=== PATIENT | male | born 1970 | race African-American/Black ===

== ENCOUNTER 2016-05-08 01:40 | Emergency (ER) | payer OTHER ==
[~2016-05-08] VITALS: Ht 165.1 cm; Wt 94.4 kg
[~2016-05-08 01:40] MED LIST: ALBU18HF INHALATION; PRED20TA PO
[2016-05-08 01:44] VITALS: Ht 165.1 cm; Wt 94.4 kg
[2016-05-08] MEDS ORDERED: IPRATROPIUM (NEB) 0.5 MG/2.5 ML AMP NEB STA (03:53)
[2016-05-08] MEDS ORDERED: ALBUTEROL 0.5% (NEB) 2.5 MG/0.5 ML AMP NEB STA (03:53)
--- NOTE | 2016-05-08 04:26 | ERD ---
ER Documentation Chief Complaint Date/Time DATE: 05/08/16 TIME: 04:23 Chief Complaint asthma flare up started 1 hr MOLDER VACUUM after doing activity. denies pain. HPI 45-year-old male presents to emergency department for complaints of wheezing and cough started tonight after doing an activity helping a friend move today. Patient has history of asthma. Patient has history of exercise-induced asthma. Patient has been having dry cough, does not cough up any phlegm or blood. Patient has episodes of wheezing. Patient ran out of his inhaler. Patient denies any fever or chills. ROS All systems reviewed and are negative except as per history of present illness. Medications Home Meds Active Scripts Albuterol Sulfate* (Proair HFA*) 8.5 Gm Hfa.aer.ad, 2 PUFF INH Q4H Y for WHEEZING AND SOB, #1 INHALER Prov:KERWIN GARCIA NP 05/08/16 Prednisone* (Prednisone*) 20 Mg Tab, 40 MG PO DAILY for 4 Days, TAB Prov:KAREN NICHOLSON PA-C 03/11/16 Albuterol Sulfate* (Ventolin HFA*) 18 Gm Hfa.aer.ad, 2 PUFF INHALATION Q4H, #1 INHALER Prov:KAREN NICHOLSON PA-C 03/11/16 Prednisone* (Prednisone*) 20 Mg Tab, 40 MG PO DAILY, #4 TAB Prov:JOEY HARRISON DO 02/03/16 Albuterol Sulfate* (Ventolin HFA*) 18 Gm Hfa.aer.ad, 2 PUFF INHALATION Q4H, #1 INHALER Prov:JOEY HARRISON DO 02/03/16 Allergies Allergies: Coded Allergies: Penicillins (Verified Allergy, Unknown, 02/03/16) PMhx/Soc History of Surgery: Yes (ankle surgery) Anesthesia Reaction: No Hx Neurological Disorder: No Hx Respiratory Disorders: No Hx Cardiac Disorders: No Hx Psychiatric Problems: No Hx Miscellaneous Medical Probl: Yes (ASTHMA) Hx Alcohol Use: No Hx Substance Use: No Hx Tobacco Use: No Smoking Status: Never smoker FmHx Family History: No coronary disease, No diabetes, No other Physical Exam Vitals Vital Signs Date Time Temp Pulse Resp B/P Pulse Ox O2 Delivery O2 Flow Rate FiO2 05/08/16 04:02 73 20 97 21 05/08/16 01:44 96.1 94 24 125/70 98 Physical Exam GENERAL: The patient is well developed and appropriate for usual state of health, in no apparent distress. CHEST: Diffuse wheezing bilaterally. There are no rales, crackles or rhonchi. HEART: Regular rate and rhythm. No murmurs, clicks, rubs or gallops. No S3 or S4. ABDOMEN: Soft, nontender and nondistended. Good bowel sounds. No rebound or guarding. No gross peritonitis. No gross organomegaly or masses. No Pérez sign or McBurney point tenderness. BACK: No midline or flank tenderness. EXTREMITIES: Equal pulses bilaterally. There is no peripheral clubbing, cyanosis or edema. No focal swelling or erythema. Full range of motion. Grossly neurovascularly intact. NEURO: Alert and oriented. Cranial nerves 2-12 intact. Motor strength in all 4 extremities with 5/5 strength. Sensation grossly intact. Normal speech and gait. SKIN: There is no apparent rash or petechia. The skin is warm and dry. HEMATOLOGIC AND LYMPHATIC: There is no evidence of excessive bruising or lymphedema. No gross cervical, axillary, or inguinal lymphadenopathy. Results 24 hrs Current Medications Medications (Trade) Dose Ordered Sig/Trevon Route PRN Reason Start Time Stop Time Status Last Admin Dose Admin Albuterol (Proventil 0.5% (Neb)) 5 mg ONCE STAT NEB 05/08/16 03:53 05/08/16 03:55 DC 05/08/16 04:02 Ipratropium [place] (Atrovent 0.02% (Neb)) 0.5 mg ONCE STAT NEB 05/08/16 03:53 05/08/16 03:55 DC 05/08/16 04:01 Breathing treatment of albuterol and Atrovent was given here in emergency department, after treatment, patient's lungs sounds are clear and patient's oxygenation is better. Patient verbalized feeling much better. Procedures/MDM Medical Decision Making: Patient symptoms are most likely consistent with acute asthma exacerbation most likely exercise-induced. There is low suspicion for Pneumonia at this time since patients lungs sounds are clear, patient O2 saturation is normal and patient doesnt show any respiratory distress. Radiology exam is not indicated at this. There is low suspicion for other cardiopulmonary emergencies at this time such as CHF, Pulmonary Embolism, Pneumothorax, Aortic Aneurysm or any other cardiopulmonary emergencies at this time. There is low suspicion for sepsis. Patient appears well and is hemodynamically stable. Patient does not have any fever. Disposition: Home. Condition: Stable Prescriptions albuterol. Instructions: Patient is advised to take medications as prescribed. Patient is advised to rest. Patient advised to increase fluid intake, do humidifier at home and if possible, do salt water gargles. Patient is advised that if symptoms are worse, shortness of breath, uncontrolled fever, stridor, vomiting, worst signs and symptoms to return to emergency department immediately. Otherwise, patient is advised to follow up with primary doctor in 5-7 days. Departure Diagnosis: Primary Impression: Asthma with acute exacerbation Asthma severity: unspecified severity Qualified Code: J45.901 - Asthma with acute exacerbation, unspecified asthma severity Condition: Stable Patient Instructions: Asthma, Acute (Adult) Additional Instructions: Patient is advised to take medications as prescribed. Patient is advised to rest. Patient advised to increase fluid intake, do humidifier at home and if possible, do salt water gargles. Patient is advised that if symptoms are worse, shortness of breath, uncontrolled fever, stridor, vomiting, worst signs and symptoms to return to emergency department immediately. Otherwise, patient is advised to follow up with primary doctor in 5-7 days. KERWIN GARCIA NP May 08, 2016 04:26
[2016-05-08] MEDS ORDERED: ALBU8.5H3 INH (04:27)
== END 2016-05-08 05:54 | disposition home or self-care (01) ==
LOC: FTE 01:40
DX: J45.901 Unspecified asthma with (acute) exacerbation (principal)
CPT/HCPCS: 94664; Z7502; Z7610

== ENCOUNTER 2016-05-17 01:59 | Inpatient (IN) | payer OTHER ==
[~2016-05-17] VITALS: Ht 167.6 cm; Wt 97.7 kg
[~2016-05-17 01:59] MED LIST changes: +ALBU8.5H3 INH
[2016-05-17] MEDS ORDERED: ONDANSETRON 4 MG INJ IV STA (03:56)
[2016-05-17] MEDS ORDERED: DICLOFENAC SODIUM 37.5 MG/ML VIAL IV STA (03:56)
[2016-05-17] MEDS ORDERED: SOD CHLORIDE 0.9% 1,000 ML IV STA (03:56)
[2016-05-17] MEDS ORDERED: morphine 2 MG INJ IV STA (03:56)
--- NOTE | 2016-05-17 04:23 | RADRPT ---
PROCEDURE: CT of the abdomen and pelvis without contrast CLINICAL INDICATION: Flank pain. TECHNIQUE: Spiral CT images through the abdomen and pelvis without the use of contrast. The study is tailored for evaluation of renal and ureteral calculi and is otherwise somewhat limited for eval uation of the abdomen and pelvis. The administered radiation dose is CTDI 19.26, DLP 1270.89. One o r more of the following dose reduction techniques were used: automated exposure control, adjustment of the mA and/or kV according to patient size, or use of iterative reconstruction technique. COMPARISON: None FINDINGS: Slight dependent atelectasis of the lung bases is seen. No pleural effusion is seen. The spleen, adrenals, and pancreas are unremarkable in appearance. There is a 9 mm probable cyst in the liver dome. No stones are seen in the kidneys, ureters, or bladder. No hydronephrosis or oanh nephric stranding. The gallbladder is distended with a suggestion of mild wall thickening and stran ding of the adjacent pericholecystic fat. No biliary or pancreatic ductal dilatation is seen. The fat stranding does extend to the adjacent hepatic flexure at the epicenter of the process appears to be about the gallbladder. The appendix is normal in appearance. Fat-containing umbilical hernia i s seen. The study is limited by lack of contrast but no gross bowel obstruction, free air, or absces s is seen. No adenopathy or ascites is seen. The bladder is underdistended. The prostate is grossl y unremarkable.. IMPRESSION: Probable acute cholecystitis. HIDA scan may be helpful for confirmation. No radiopaque stones. No biliary ductal dilatation. RPTAT: [facility] Physician Tierney Date Time Electronically viewed and signed by Physician Tierney on 05/17/2016 04:23 LE/
[2016-05-17 04:37] LABS: ADD UMIC YES; URINE BILIRUBIN (Dip) NEGATIVE (NEGATIVE); URINE BLOOD (Dip) 1+ (NEGATIVE); URINE COLOR LT. YELLOW (YELLOW); URINE GLUCOSE (Dip) NEGATIVE (NEGATIVE); URINE KETONES (Dip) TRACE (NEGATIVE); URINE LEUKOCYTE ESTERASE (Dip) NEGATIVE (NEGATIVE); URINE NITRITE (Dip) NEGATIVE (NEGATIVE); URINE TOTAL PROTEIN (Dip) NEGATIVE (NEGATIVE); URINE UROBILINOGEN (Dip) 1.0 E.U./dL (0.1-1.0)
[2016-05-17 04:45] LABS: SQUAMOUS EPITHELIAL CELL,UR OCCASIONAL; URINE RBCS 0-2 /HPF (0)
[2016-05-17 05:16] LABS: ALBUMIN 3.7 g/dl (3.3-4.9)
[2016-05-17 05:17] LABS: POTASSIUM 4.5 mmol/L (3.5-5.1)
[2016-05-17 05:19] LABS: ALBUMIN/GLOBULIN RATIO 1.05; BILIRUBIN,INDIRECT 0.3 mg/dl (0-1.1); BILIRUBIN,TOTAL 0.3 mg/dl (0.2-1.3); CREATININE 1.32 mg/dl (0.61-1.24); TOTAL PROTEIN 7.2 g/dl (6.1-8.1)
[2016-05-17 06:01] LABS: BASOPHILS % 0.2 % (0.0-2.0); EOSINOPHILS # 0.3 10^3/ul (0.0-0.5); EOSINOPHILS % 1.9 % (0.0-7.0); HEMATOCRIT 37.8 % (42.0-52.0); HEMOGLOBIN 12.3 g/dl (14.0-18.0); LYMPHOCYTES # 1.1 10^3/ul (0.8-2.9); LYMPHOCYTES % 6.8 % (15.0-51.0); MEAN CORPUSCULAR HEMOGLOBIN 27.3 pg (29.0-33.0); MEAN CORPUSCULAR HGB CONC 32.6 g/dl (32.0-37.0); MEAN CORPUSCULAR VOLUME 83.8 fl (82.0-101.0); MEAN PLATELET VOLUME 8.7 fl (7.4-10.4); MONOCYTE # 1.4 10^3/ul (0.3-0.9); MONOCYTES % 8.8 % (0.0-11.0); NEUTROPHILS % 82.3 % (39.0-77.0); PLATELET COUNT 409 10^3/UL (140-440); RED BLOOD COUNT 4.51 10^6/ul (4.70-6.10); RED CELL DISTRIBUTION WIDTH 14.6 % (11.5-14.5); UNCORRECTED WBC 15.8 10^3/ul (4.8-10.8); WHITE BLOOD COUNT 15.8 10^3/ul (4.8-10.8)
[2016-05-17 06:02] LABS: CONDITION 1; LH ANALYZER COMMENTS 1
--- NOTE | 2016-05-17 06:04 | RADRPT ---
PROCEDURE: US Abdomen. CLINICAL INDICATION: ruq pain, kenia on ct TECHNIQUE: Brown scale and color Doppler imaging of the right upper quadrant COMPARISON: CT from earlier FINDINGS: The aorta and inferior vena cava were not well seen due to bowel gas. The liver is homogeneous in e chotexture and no focal liver lesions are seen. Multiple stones and perhaps some sludge is present i n the gallbladder. The gallbladder is suboptimally seen but there is mild gallbladder wall thickeni ng measuring up to 5 mm in diameter by my measurement. No intra or extrahepatic biliary dilatation i s seen. The common bile duct measures 4.5 mm in maximal dimension. The right kidney measures 9.3 cm . No hydronephrosis or renal calculi are seen. The pancreas completely obscured by bowel gas.. No ascites is seen. IMPRESSION: Limited study. Gallstones with perhaps some gallbladder wall thickening. HIDA scan may be helpful to evaluate for acute cholecystitis. No biliary ductal dilatation. RPTAT: [facility] Physician Tierney Date Time Electronically viewed and signed by Helen Robles Physician on 05/17/2016 06:04 ALAN/
[2016-05-17] MEDS ORDERED: SOD CHLORIDE 0.9% 1,000 ML IV ONE ×3 (06:30→07:30)
[2016-05-17] MEDS ORDERED: CEFTRIAXONE 1 GM/50 ML (PMX) 50 ML IVPB STA (07:16)
[2016-05-17] MEDS ORDERED: metroNIDAZOLE 500 MG/NS (PMX) 100 ML IVPB ONE (07:30)
--- NOTE | 2016-05-17 07:35 | ERA ---
ER Documentation Chief Complaint Date/Time DATE: 05/17/16 TIME: 07:29 Chief Complaint both flank pain x 1 day HPI 45 year-old male with right sided and upper right abdominal pain going on for 1 day. States that it is actually bilateral kidney pain. Denies dysuria, has had chills and fever. Patient is not aware of any gallstones that he might have. Palpation makes the pain worse, nothing makes it better. He has tried Tylenol at home with no relief. ROS All systems reviewed and are negative except as per history of present illness. Medications Home Meds Discontinued Scripts Albuterol Sulfate* (Proair HFA*) 8.5 Gm Hfa.aer.ad, 2 PUFF INH Q4H Y for WHEEZING AND SOB, #1 INHALER Prov:KERWIN GARCIA NP 05/08/16 Prednisone* (Prednisone*) 20 Mg Tab, 40 MG PO DAILY for 4 Days, TAB Prov:KAREN NICHOLSON PA-C 03/11/16 Albuterol Sulfate* (Ventolin HFA*) 18 Gm Hfa.aer.ad, 2 PUFF INHALATION Q4H, #1 INHALER Prov:KAREN NICHOLSON PA-C 03/11/16 Prednisone* (Prednisone*) 20 Mg Tab, 40 MG PO DAILY, #4 TAB Prov:JOEY HARRISON DO 02/03/16 Albuterol Sulfate* (Ventolin HFA*) 18 Gm Hfa.aer.ad, 2 PUFF INHALATION Q4H, #1 INHALER Prov:JOEY HARRISON DO 02/03/16 Allergies Allergies: Coded Allergies: Penicillins (Verified Allergy, Unknown, 02/03/16) PMhx/Soc Medical and Surgical Hx: pt denies Medical Hx History of Surgery: Yes (L ankle fx repair) Anesthesia Reaction: No Hx Neurological Disorder: No Hx Respiratory Disorders: No Hx Cardiac Disorders: No Hx Psychiatric Problems: No Hx Miscellaneous Medical Probl: Yes (ASTHMA) Hx Alcohol Use: No Hx Substance Use: No Hx Tobacco Use: No Smoking Status: Never smoker Physical Exam Vitals Vital Signs Date Time Temp Pulse Resp B/P Pulse Ox O2 Delivery O2 Flow Rate FiO2 05/17/16 05:50 85 16 127/82 98 Room Air 05/17/16 02:04 97.6 94 20 122/70 98 Physical Exam Const: [] Mild distress, appears uncomfortable Head: Atraumatic Eyes: Normal Conjunctiva ENT: Normal External Ears, Nose and Mouth. Neck: Full range of motion..~ No meningismus. Resp: Clear to auscultation bilaterally Cardio: Regular tachycardia, no murmurs Abd: Soft, mild to moderate right upper quadrant tenderness without guarding or rebound, non distended. Normal bowel sounds Skin: No petechiae or rashes Back: No midline or flank tenderness Ext: No cyanosis, or edema Neur: Awake and alert and oriented 3, no focal deficits Psych: Normal Mood and Affect Result Diagram: 05/17/1644905/17/16 0450 Results 24 hrs Laboratory Tests Test 05/17/16 04:08 05/17/16 04:50 Urine Bilirubin NEGATIVE Urine Clarity CLEAR Urine Color LT. YELLOW Urine Glucose NEGATIVE% Urine Hemoglobin 1+ Urine Ketones TRACE Urine Leukocyte Esterase NEGATIVE Urine Microscopic RBC 0-2/HPF Urine Microscopic WBC 0-2/HPF Urine Nitrite NEGATIVE Urine Specific [place] >=1.030 Urine Squamous Epithelial Cells OCCASIONAL Urine Total Protein NEGATIVE Urine Urobilinogen 1.0 E.U./dL Urine pH 5.5 Alanine Aminotransferase (ALT/SGPT) 45IU/L Albumin 3.7g/dl Albumin/Globulin Ratio 1.05 Alkaline Phosphatase 95IU/L Anion Gap 18 Aspartate Amino Transf (AST/SGOT) 40IU/L Basophils # 0.010^3/ul Basophils % 0.2% Blood Morphology Comment Blood Urea Nitrogen 12mg/dl Calcium Level 9.0mg/dl Carbon Dioxide Level 27mmol/L Chloride Level 104mmol/L Creatinine 1.32mg/dl Direct Bilirubin 0.00mg/dl Eosinophils # 0.310^3/ul Eosinophils % 1.9% Globulin 3.50g/dl Glucose Level 114mg/dl Hematocrit 37.8% Hemoglobin 12.3g/dl Indirect Bilirubin 0.3mg/dl Lipase 64U/L Lymphocytes # 1.110^3/ul Lymphocytes % 6.8% Mean Corpuscular Hemoglobin 27.3pg Mean Corpuscular Hemoglobin Concent 32.6g/dl Mean Corpuscular Volume 83.8fl Mean Platelet Volume 8.7fl Monocytes # 1.410^3/ul Monocytes % 8.8% Neutrophils # 13.010^3/ul Neutrophils % 82.3% Nucleated Red Blood Cells # 0.010^3/ul Nucleated Red Blood Cells % 0.0/100WBC Platelet Count 19032^3/UL Potassium Level 4.5mmol/L Red Blood Count 4.5110^6/ul Red Cell Distribution Width 14.6% Sodium Level 144mmol/L Total Bilirubin 0.3mg/dl Total Protein 7.2g/dl White Blood Count 15.810^3/ul Current Medications Medications (Trade) Dose Ordered Sig/Trevon Route PRN Reason Start Time Stop Time Status Last Admin Dose Admin Sodium Chloride (NS) 1,000 ml @ 1,000 mls/hr Q1H STAT IV 05/17/16 03:56 05/17/16 04:55 DC 05/17/16 04:41 Morphine Sulfate (morphine) 2 mg ONCE STAT IV 05/17/16 03:56 05/17/16 03:58 DC 05/17/16 04:41 Ondansetron HCl (Zofran Inj) 4 mg ONCE STAT IV 05/17/16 03:56 05/17/16 03:58 DC 05/17/16 04:41 Diclofenac Sodium 37.5 mg 37.5 mg ONCE STAT IV 05/17/16 03:56 05/17/16 03:58 DC 05/17/16 04:41 Sodium Chloride 1,000 ml @ 1,000 mls/hr Q1H ONCE IV 05/17/16 06:30 05/17/16 07:29 05/17/16 06:57 Ceftriaxone Sodium 50 ml @ 100 mls/hr ONCE STAT IVPB 05/17/16 07:16 05/17/16 07:45 Metronidazole 100 ml @ 100 mls/hr ONCE ONCE IVPB 05/17/16 07:30 05/17/16 08:29 Sodium Chloride 1,000 ml @ 1,000 mls/hr Q1H ONCE IV 05/17/16 07:30 05/17/16 08:29 Sodium Chloride (NS) 1,000 ml @ 1,000 mls/hr Q1H ONCE IV 05/17/16 07:30 05/17/16 08:29 Procedures/MDM Likely acute cholecystitis with sepsis. Evidence of acute cholecystitis on CT with a nondiagnostic ultrasound. Patient does have an elevated white blood blood cell count, fever consistent with sepsis. Symptoms only been present for for short time. Patient was given 30 cc/kg of IV fluid as well as Rocephin and Flagyl. Pain was controlled with morphine and I will inject. Patient has no evidence of acute pancreatitis with a lipase of 64. Minimal elevation of his single transaminase. Spoke with Dr. Edwards who will see patient in consult and recommends a HIDA scan. Patient's pain is well controlled and vital signs of improved. CT abdomen pelvis interpretation: Likely acute cholecystitis without any signs of intestinal obstruction or free air, no bony abnormalities acutely. traffic monitor specialist interpretation: Sinus tachycardia improved with fluid administration Critical care time 34 minutes: This includes a treatment of sepsis with acute cholecystitis, careful fluid administration, chart review, multiple physical exams to reassess patient's symptoms, treatment of multiple organ dysfunction, antibiotic administration and selection, chart review, discussion with patient, admitting doctor and tool engineer. No billable procedures Departure Diagnosis: Primary Impression: Acute cholecystitis Additional Impressions: Sepsis Renal insufficiency Condition: Serious JOEY HARRISON DO May 17, 2016 07:35
--- NOTE | 2016-05-17 11:03 | HP ---
DATE OF ADMISSION: 05/17/2016 TYPE OF CONSULTATION: REQUESTING PHYSICIAN: nAdrea Carter MD REASON FOR CONSULTATION: Acute cholecystitis. HISTORY OF PRESENT ILLNESS: The patient is a 45-year-old aftercare -[place] gentleman who p resents to the emergency room with a 1-day history of right flank pain and right upper quadrant abdo manda pain. He has no familial history of gallbladder disease. Abdominal ultrasound showed multipl e gallstones with gallbladder wall thickening suggestive of acute cholecystitis. He has had no feve rs, chills or jaundice. A HIDA scan for this patient has been ordered. PAST MEDICAL HISTORY: No previous hospitalizations or illnesses other than the left ankle fracture with surgery. OUTPATIENT MEDICATIONS: None. ALLERGIES: NONE. REVIEW OF SYSTEMS: HEAD, EARS, EYES, NOSE AND THROAT: Unremarkable. PULMONARY: The patient has history of asthma. CARDIAC: No history of chest pain, CO or arrhythmia. ABDOMEN: As in the HPI. EXTREMITIES: Unremarkable. PHYSICAL EXAMINATION: GENERAL: The patient is a morbidly obese 45-year-old gentleman who is awake and alert, in no acute distress. HEAD, EARS, EYES, NOSE AND THROAT: Within normal limits. LUNGS: Clear. HEART: Regular rhythm. ABDOMEN: Tender in the right upper quadrant with slight guarding but no rebound. There is a small reducible umbilical hernia. EXTREMITIES: Unremarkable. LABORATORY DATA: The patient's hematocrit is 37.8 with a white count of 15,800, 82.3 polys. BUN, g lucose, electrolytes are unremarkable. LFTs are normal. IMAGING: As noted above. IMPRESSION: Clinically, this patient has acute cholecystitis and will be benefited by laparoscopic cholecystectomy. A HIDA scan is in progress. The patient will receive IV antibiotics today with hedrick rgery planned for tomorrow. I have discussed the procedure, outcomes, alternatives and risks in [facility] with the patient who has an excellent understanding of the nature of his situation and agrees to the proposed plan of therapy as outlined. Dictated By: KOSTAS PEDRAZA/HAYDEN Conf#: [id number] DID#: [id number] CC: ANDREA CARTER MD;*EndCC*
[2016-05-17] MEDS ORDERED: morphine 4 MG/ML VIAL IV STA (11:46)
--- NOTE | 2016-05-17 12:09 | CONS ---
Date/Time of Note Date/Time of Note DATE: 05/17/16 TIME: 12:04 Assessment/Plan Assessment/Plan Additional Assessment/Plan Abdominal pain * Likely secondary to cholecystitis * Cholecystectomy scheduled for tomorrow * Choledocholithiasis less likely secondary to normal bilirubin, LFTs, and lipase * ERCP if clinically indicated * Surgery following * Further recommendations depend on clinical course Consultation Date/Type/Reason Admit Date/Time Type of Consultation: Gastroenterology Reason for Consultation Abdominal pain Hx of Present Illness 45-year-old male who presents to ED with reports of 1-day history of right flank pain and right upper quadrant abdominal pain. Social History Smoking Status: Never smoker Exam/Review of Systems Vital Signs Vitals Vital Signs Date Time Temp Pulse Resp B/P Pulse Ox O2 Delivery O2 Flow Rate FiO2 05/17/16 07:50 98.5 88 16 130/80 98 Room Air Results Result Diagram: 05/17/16 0450 05/17/16 0450 Results 24 hrs Laboratory Tests Test 05/17/16 04:08 05/17/16 04:50 Urine Bilirubin NEGATIVE Urine Clarity CLEAR Urine Color LT. YELLOW Urine Glucose NEGATIVE Urine Hemoglobin 1+ H Urine Ketones TRACE Urine Leukocyte Esterase NEGATIVE Urine Microscopic RBC 0-2 Urine Microscopic WBC 0-2 Urine Nitrite NEGATIVE Urine Specific [place] >=1.030 H Urine Squamous Epithelial Cells OCCASIONAL Urine Total Protein NEGATIVE Urine Urobilinogen 1.0 E.U./dL Urine pH 5.5 Alanine Aminotransferase (ALT/SGPT) 45 Albumin 3.7 Albumin/Globulin Ratio 1.05 Alkaline Phosphatase 95 Anion Gap 18 H Aspartate Amino Transf (AST/SGOT) 40 Basophils # 0.0 Basophils % 0.2 Blood Morphology Comment Blood Urea Nitrogen 12 Calcium Level 9.0 Carbon Dioxide Level 27 Chloride Level 104 Creatinine 1.32 H Direct Bilirubin 0.00 Eosinophils # 0.3 Eosinophils % 1.9 Globulin 3.50 H Glucose Level 114 Hematocrit 37.8 L Hemoglobin 12.3 L Indirect Bilirubin 0.3 Lipase 64 Lymphocytes # 1.1 Lymphocytes % 6.8 L Mean Corpuscular Hemoglobin 27.3 L Mean Corpuscular Hemoglobin Concent 32.6 Mean Corpuscular Volume 83.8 Mean Platelet Volume 8.7 Monocytes # 1.4 H Monocytes % 8.8 Neutrophils # 13.0 H Neutrophils % 82.3 H Nucleated Red Blood Cells # 0.0 Nucleated Red Blood Cells % 0.0 Platelet Count 409 Potassium Level 4.5 Red Blood Count 4.51 L Red Cell Distribution Width 14.6 H Sodium Level 144 Total Bilirubin 0.3 Total Protein 7.2 White Blood Count 15.8 H NEIL HUTCHINSON MD May 17, 2016 12:09
[2016-05-17] MEDS: SOD CHLORIDE 0.9% 1,000 ML IV SCH ×2 (12:41→21:28)
[2016-05-17] MEDS ORDERED: DOCUSATE SODIUM 100 MG CAP PO PRN (13:00)
[2016-05-17] MEDS ORDERED: ACETAMINOPHEN 325 MG TAB PO PRN (13:00)
[2016-05-17] MEDS ORDERED: NACL 0.9% 3 ML SYG IV SCH (13:00)
[2016-05-17] MEDS ORDERED: BISACODYL 10 MG SUPP PR PRN (13:00)
[2016-05-17] MEDS ORDERED: MAGNESIUM HYDROXIDE 30ML CUP PO PRN (13:00)
--- NOTE | 2016-05-17 13:05 | RADRPT ---
AMENDMENT: 05/17/2016 4:21:04 PM Lauryn Damico MD Delayed images of the abdomen obtained at 5.5 hours post injection demonstrates a persistent nonvisu alization of the gallbladder. [facility] Radiology Report Patient Name: MARGARETH GONZALEZ Report Date: 17-May-2016 13:05.00 Accession No.: [id number] Patient Date: 1970 Report Status: S Referring Physician: CARLENE COOK Reason For Study: cholecystitis [place] [address] Radiology Main Line: [phone] DIAGNOSTIC IMAGING REPORT Patient: LISA ZULUAGA : 1970 Age: 45 Sex: M MR #: [id number] DOS: 05/17/16 0000 Ordering MD: JOEY HARRISON DO Location: E/R Room/Bed: PROCEDURE: HIDA scan CLINICAL INDICATION: 45 -year-old patient with abdominal pain. TECHNIQUE: Following the intravenous injection of 8.6 mCi of Tc-99m mebrofenin, multiple images of the abdomen were obtained up to 90 minutes post injection. COMPARISON: No prior studies. FINDINGS: The liver is promptly visualized, demonstrates homogeneous distribution of radionuclide. There is visualization of the common bile duct and gastrointestinal activity within normal time. The gallbladder is not visualized up to 90 minutes post injection. IMPRESSION: 1. Nonvisualization of the gallbladder up to 90 minutes post injection. 2. No evidence of a common bile duct obstruction. RPTAT: HH .Lauryn Damico MD, MD Date Time Electronically viewed and signed by .Lauryn Damico MD, MD on 05/17/2016 13:05 .L/ CC: JOEY HARRISON DO .Lauryn Damico MD, MD Date Time Electronically viewed and signed by .Lauryn Damico MD, MD on 05/17/2016 16:20 .L/
--- NOTE | 2016-05-17 13:23 | RADRPT ---
PROCEDURE: Chest x-ray CLINICAL INDICATION: pre op. TECHNIQUE: One-view frontal. COMPARISON: 02/03/2016 FINDINGS: The cardiac silhouette is normal. No infiltrates are noted. No hilar abnormalities are identified. No pneumothorax or pleural effusions are visualized. IMPRESSION: 1. No active cardiopulmonary changes. RPTAT: HH .Tu Schmitz MD, MD Date Time Electronically viewed and signed by .Tu Schmitz MD, MD on 05/17/2016 13:22 .G/
[2016-05-17] MEDS: LEVOFLOXACIN 750MG/D5W (PMX) 150 ML IVPB SCH (14:10)
[2016-05-17 15:00] VITALS: TEMP 98.4
[2016-05-17 15:28] LABS: INR 1.04; PROTIME 13.6 Sec (12.2-14.2); PT RATIO 1.1
[2016-05-17 15:29] LABS: PARTIAL THROMBOPLASTIN TIME 31.3 Sec (25.0-35.0)
[2016-05-17] MEDS: morphine 2 MG INJ IV PRN ×2 (15:35→20:11)
--- NOTE | 2016-05-17 16:08 | HP ---
DATE OF ADMISSION: 05/17/2016 PRIMARY CARE PHYSICIAN: KIKA CLAYTON MD. CONSULTANTS ON THIS ADMISSION: 1. KOSTAS BENNETT MD, general surgery. 2. NEIL EDWARDS MD, gastroenterology. CHIEF COMPLAINT: Abdominal pain. HISTORY OF THE PRESENT ILLNESS: This is a 45-year-old male with history of asthma who presented to [facility] emergency department with abdominal pain over the past 48 hours. He reports that it is a right f lank, right upper quadrant abdominal pain with episodes of nausea and vomiting over the past 48 hour s. He denies any fevers, chills, but does report worsening of the pain so far. In the emergency de partment, he had a gallbladder ultrasound that showed multiple gallstones with gallbladder wall thic kening suggestive of acute cholecystitis. He also had a CAT scan of the abdomen and pelvis that did show probable acute cholecystitis again. No radial opaque stones and no biliary ductal dilatation. HIDA scan is in process currently. The patient is n.p.o. He has been started on Levaquin and Flag yl given his PENICILLIN ALLERGY. Again, he has been evaluated by Dr. Bennett from General Surgery, w ho is recommending cholecystectomy pending HIDA scan. ALLERGIES: PENICILLIN. PAST MEDICAL HISTORY: Asthma. The last time the patient used his inhaler was 48 hours ago. PAST SURGICAL HISTORY: None. OUTPATIENT MEDICATIONS: Just albuterol inhaler as needed. SOCIAL HISTORY: The patient denies any alcohol or tobacco use. REVIEW OF SYSTEMS: As per HPI. PHYSICAL EXAMINATION: VITAL SIGNS: Temperature is 98.4, heart rate of 87, sinus rhythm, respiratory rate 16, blood pressu re 124/75. The patient is satting 100% on room air. GENERAL: He is alert and oriented x4. He is in mild distress, holding to his right side. HEENT: Pupils are equally round and reactive to light. Extraocular muscles are intact. Anicteric sclerae. NECK: No JVD, no thyromegaly noted. HEART: Regular rate and rhythm. No murmur, rubs, or gallops. LUNGS: Clear to auscultation bilaterally. ABDOMEN: Soft, nondistended. He does have tenderness to palpation in right upper quadrant, right f lank pain. Bowel sounds are present, diminished. EXTREMITIES: No edema, clubbing or cyanosis. NEUROLOGIC: Grossly intact. LABORATORY DATA: White blood cell count is 15.8 with 82% neutrophils, hemoglobin 12.3, hematocrit 3 7.8, platelet count of 409. Chemistry with a sodium of 144, potassium 4.5, chloride 104, bicarbonat e 27, BUN 12, creatinine 1.32, glucose of 114, total bilirubin 0.3, AST 40, ALT 45, alkaline phospha tase 95, albumin of 2.7, total protein of 7.2, lipase of 64. Urinalysis is negative, mostly. PT, PTT, INR are pending at this point. ELECTROCARDIOGRAM: A 12-lead EKG was also ordered as part of his preop evaluation. RADIOLOGICAL DATA: 1. Chest x-ray shows no active cardiopulmonary disease. 2. Gallbladder ultrasound showed gallstone with perhaps some gallbladder wall thickening, no biliar y duct dilatation. 3. CAT scan of the abdomen and pelvis showing probable acute cholecystitis and recommended for HIDA scan. HIDA scan is in process currently. ASSESSMENT AND PLAN: This is a 45-year-old male with: 1. Right upper quadrant, right flank pain with findings so far for acute cholecystitis. The patien t is on Levaquin and Flagyl. He has been seen by Dr. Bennett who is planning for cholecystectomy pen ding HIDA scan. Also, has been seen by Dr. Edwards who agrees with cholecystectomy pending, HIDA sca n at this point. Patient is n.p.o. 2. Asthma has been stable from the respiratory standpoint. Chest x-ray stable, will have a nebuliz er ordered as needed. 3. Disposition: HIDA scan pending. Depending on results, cholecystectomy to be planned by Dr. Eladio mar from General Surgery. 4. Prophylaxis. Sequential compression devices to lower extremities for deep venous thrombosis pro phylaxis and Protonix for gastrointestinal prophylaxis. Dictated By: MISAEL COBIAN/HAYDEN Conf#: [id number] DID#: [id number]
[2016-05-17 21:10] VITALS: BP 131/78; PULSE 106; RESP 18
[2016-05-17 21:35] VITALS: Ht 167.6 cm; Wt 97.7 kg
[2016-05-17] MEDS: metroNIDAZOLE 500 MG/NS (PMX) 100 ML IVPB SCH (21:44)
[2016-05-18] VITALS (13 sets, daily range): BP systolic 100–134; BP diastolic 51–81; PULSE 85–100; RESP 16–20
[2016-05-18] MEDS: morphine 2 MG INJ IV PRN ×4 (00:10→19:46)
[2016-05-18] MEDS: PANTOPRAZOLE 40 MG INJ IV SCH (05:06)
[2016-05-18] MEDS: metroNIDAZOLE 500 MG/NS (PMX) 100 ML IVPB SCH ×3 (05:06→22:58)
[2016-05-18 05:40] LABS: BASOPHIL # 0.1 10^3/ul (0.0-0.1); BASOPHILS % 0.3 % (0.0-2.0); EOSINOPHILS # 0.3 10^3/ul (0.0-0.5); EOSINOPHILS % 1.6 % (0.0-7.0); HEMATOCRIT 35.2 % (42.0-52.0); HEMOGLOBIN 11.6 g/dl (14.0-18.0); LYMPHOCYTES # 1.1 10^3/ul (0.8-2.9); LYMPHOCYTES % 5.6 % (15.0-51.0); MEAN CORPUSCULAR HEMOGLOBIN 27.8 pg (29.0-33.0); MEAN CORPUSCULAR HGB CONC 32.9 g/dl (32.0-37.0); MEAN CORPUSCULAR VOLUME 84.5 fl (82.0-101.0); MEAN PLATELET VOLUME 8.1 fl (7.4-10.4); MONOCYTE # 2.4 10^3/ul (0.3-0.9); MONOCYTES % 12.5 % (0.0-11.0); NEUTROPHIL # 15.4 10^3/ul (1.6-7.5); PLATELET COUNT 352 10^3/UL (140-440); RED BLOOD COUNT 4.17 10^6/ul (4.70-6.10); RED CELL DISTRIBUTION WIDTH 14.5 % (11.5-14.5); UNCORRECTED WBC 19.3 10^3/ul (4.8-10.8); WHITE BLOOD COUNT 19.3 10^3/ul (4.8-10.8)
[2016-05-18 05:47] LABS: CONDITION 1
[2016-05-18 06:18] LABS: ALBUMIN 3.1 g/dl (3.3-4.9)
[2016-05-18 06:19] LABS: POTASSIUM 4.5 mmol/L (3.5-5.1)
[2016-05-18 06:21] LABS: ALBUMIN/GLOBULIN RATIO 0.91; BILIRUBIN,INDIRECT 0.3 mg/dl (0-1.1); BILIRUBIN,TOTAL 0.3 mg/dl (0.2-1.3); CREATININE 1.13 mg/dl (0.61-1.24); PHOSPHORUS 2.6 mg/dl (2.5-4.9); TOTAL PROTEIN 6.5 g/dl (6.1-8.1)
[2016-05-18 06:22] LABS: CALCIUM 8.4 mg/dl (8.4-10.2)
[2016-05-18] MEDS ORDERED: CEFAZOLIN 1 GM INJ ONE (07:00)
[2016-05-18] MEDS ORDERED: ACETAMINOPHEN 1000 MG/100 ML IVPB ONE (07:00)
--- NOTE | 2016-05-18 09:09 | CONS ---
Date/Time of Note Date/Time of Note DATE: 05/18/16 TIME: 09:07 Assessment/Plan Assessment/Plan Additional Assessment/Plan Abdominal pain * Likely secondary to cholecystitis * Cholecystectomy scheduled for tomorrow * Choledocholithiasis less likely secondary to normal bilirubin, LFTs, and lipase * ERCP if clinically indicated * Surgery following Further recommendations depend on clinical course Patient seen in collaboration with Dr. Edwards Consultation Date/Type/Reason Admit Date/Time May 17, 2016 at 08:51 Initial Consult Date Type of Consultation: Gastroenterology 24 HR Interval Summary Free Text/Dictation Cholecystectomy at 1130 today Reports less abdominal pain Exam/Review of Systems Vital Signs Vitals Vital Signs Date Time Temp Pulse Resp B/P Pulse Ox O2 Delivery O2 Flow Rate FiO2 05/18/16 08:09 98.0 92 18 121/75 96 05/18/16 00:20 Room Air Intake and Output 05/17/16 05/17/16 05/18/16 15:00 23:00 07:00 Intake Total 100 ml 850 ml Output Total 700 ml Balance 100 ml 150 ml Exam Constitutional: alert, oriented, well developed Psych: nl mood/affect Head: normocephalic Eyes: EOMI, nl conjunctiva, nl lids, nl sclera ENMT: nl external ears & nose, nl lips & teeth, nl nasal mucosa & septum Respiratory: normal air movement Cardiovascular: regular rate and rhythm Gastrointestinal: soft, tender (LUQ) Musculoskeletal: nl extremities to inspection 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 Results Result Diagram: 05/18/16 04205/18/16 0420 Results 24 hrs Laboratory Tests Test 05/17/16 15:00 05/17/16 19:05 05/17/16 21:36 05/18/16 04:20 Activated Partial Thromboplast Time 31.3 INR International Normalized Ratio 1.04 Lactic Acid Level 1.3 1.5 1.4 Prothrombin Time 13.6 Prothrombin Time Ratio 1.1 Alanine Aminotransferase (ALT/SGPT) 33 Albumin 3.1 L Albumin/Globulin Ratio 0.91 Alkaline Phosphatase 82 Anion Gap 14 Aspartate Amino Transf (AST/SGOT) 26 Basophils # 0.1 Basophils % 0.3 Blood Morphology Comment Blood Urea Nitrogen 8 Calcium Level 8.4 Carbon Dioxide Level 26 Chloride Level 104 Creatinine 1.13 Direct Bilirubin 0.00 Eosinophils # 0.3 Eosinophils % 1.6 Globulin 3.40 H Glucose Level 89 Hematocrit 35.2 L Hemoglobin 11.6 L Indirect Bilirubin 0.3 Lymphocytes # 1.1 Lymphocytes % 5.6 L Magnesium Level 2.0 Mean Corpuscular Hemoglobin 27.8 L Mean Corpuscular Hemoglobin Concent 32.9 Mean Corpuscular Volume 84.5 Mean Platelet Volume 8.1 Monocytes # 2.4 H Monocytes % 12.5 H Neutrophils # 15.4 H Neutrophils % 80.0 H Nucleated Red Blood Cells # 0.0 Nucleated Red Blood Cells % 0.0 Phosphorus Level 2.6 Platelet Count 352 Potassium Level 4.5 Red Blood Count 4.17 L Red Cell Distribution Width 14.5 Sodium Level 139 Total Bilirubin 0.3 Total Protein 6.5 White Blood Count 19.3 #H Medications Medications Current Medications Levofloxacin/ Dextrose 150 ml @ 100 mls/hr Q24H IVPB Last administered on 05/17 14:10; Admin Dose 100 MLS/HR; Start 05/17/16 at 14:00 Metronidazole 100 ml @ 100 mls/hr Q8 IVPB Last administered on 05/18/16 05:06 ; Admin Dose 100 MLS/HR; Start 05/17/16 at 22:00 Sodium Chloride (NS) 1,000 ml @ 100 mls/hr Q10H IV Last administered on 21:28; Admin Dose 100 MLS/HR; Start 05/17/16 at 12:41 Ondansetron HCl (Zofran Inj) 4 mg Q6H PRN IV NAUSEA AND/OR VOMITING; Start at 13:00 Acetaminophen (Tylenol Tab) 650 mg Q6H PRN PO PAIN LEVEL 1-3 OR FEVER Last administered on 05/17/16 21:55; Admin Dose 650 MG; Start 05/17/16 at 13:00 Morphine Sulfate (morphine) 2 mg Q4H PRN IV SEVERE PAIN LEVEL 7-10 Last administered on 05/18/16 08:40; Admin Dose 2 MG; Start 05/17/16 at 13:00 Docusate Sodium (Colace) 100 mg Q12H PRN PO CONSTIPATION; Start 05/17/16 at 13: 00 Magnesium Hydroxide (Milk Of Mag) 30 ml DAILY PRN PO CONSTIPATION; Start at 13:00 Bisacodyl (Dulcolax Supp) 10 mg DAILY PRN [place] CONSTIPATION; Start 05/17/16 at 13 :00 Pantoprazole (Protonix Iv) 40 mg DAILY@06 IV Last administered on 05/18/16t 05: 06; Admin Dose 40 MG; Start 05/18/16 at 06:00 YESICA YI May 18, 2016 09:09
[2016-05-18] MEDS: SOD CHLORIDE 0.9% 1,000 ML IV SCH ×2 (09:45→15:35)
--- NOTE | 2016-05-18 10:49 | PN ---
Date/Time of Note Date/Time of Note DATE: 05/18/16 TIME: 10:37 Assessment/Plan VTE Prophylaxis VTE Prophylaxis Intervention: SCD's Lines/Catheters IV Catheter Type (from Nrs): Peripheral IV Urinary Cath still in place: No Assessment/Plan Assessment/Plan 45-year-old male with: 1. Acute cholecystitis with right upper quadrant, right flank pain. Cholecystectomy planned for today NPO, IVF and IV abx on board 2. Asthma: . Chest x-ray stable, nebulizer prn Prophylaxis. Sequential compression devices to lower extremities for deep venous thrombosis prophylaxis and Protonix for gastrointestinal prophylaxis. Disposition: Cholecystectomy today with Dr. Hoyt. Subjective 24 Hr Interval Summary Free Text/Dictation Patient doing Ok, remains stable WBC up and with pain but hemodynamically stable and afebrile Exam/Review of Systems Vital Signs Vitals Vital Signs Date Time Temp Pulse Resp B/P Pulse Ox O2 Delivery O2 Flow Rate FiO2 05/18/16 08:09 98.0 92 18 121/75 96 05/18/16 00:20 Room Air Intake and Output 05/17/16 05/17/16 05/18/16 15:00 23:00 07:00 Intake Total 100 ml 850 ml Output Total 700 ml Balance 100 ml 150 ml Exam Constitutional: alert, oriented, well developed Cardiovascular: nl pulses, regular rate and rhythm Gastrointestinal: non-tender, soft Musculoskeletal: nl extremities to inspection Extremities: normal pulses, other (no edema, clubbing or cyanosis ) 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, nl mental status, nl speech, nl strength Results Result Diagram: 05/18/1641905/18/16 042 Results 24 hrs Laboratory Tests Test 05/17/16 15:00 05/17/16 19:05 05/17/16 21:36 05/18/16 04:20 Activated Partial Thromboplast Time 31.3 INR International Normalized Ratio 1.04 Lactic Acid Level 1.3 1.5 1.4 Prothrombin Time 13.6 Prothrombin Time Ratio 1.1 Alanine Aminotransferase (ALT/SGPT) 33 Albumin 3.1 L Albumin/Globulin Ratio 0.91 Alkaline Phosphatase 82 Anion Gap 14 Aspartate Amino Transf (AST/SGOT) 26 Basophils # 0.1 Basophils % 0.3 Blood Morphology Comment Blood Urea Nitrogen 8 Calcium Level 8.4 Carbon Dioxide Level 26 Chloride Level 104 Creatinine 1.13 Direct Bilirubin 0.00 Eosinophils # 0.3 Eosinophils % 1.6 Globulin 3.40 H Glucose Level 89 Hematocrit 35.2 L Hemoglobin 11.6 L Indirect Bilirubin 0.3 Lymphocytes # 1.1 Lymphocytes % 5.6 L Magnesium Level 2.0 Mean Corpuscular Hemoglobin 27.8 L Mean Corpuscular Hemoglobin Concent 32.9 Mean Corpuscular Volume 84.5 Mean Platelet Volume 8.1 Monocytes # 2.4 H Monocytes % 12.5 H Neutrophils # 15.4 H Neutrophils % 80.0 H Nucleated Red Blood Cells # 0.0 Nucleated Red Blood Cells % 0.0 Phosphorus Level 2.6 Platelet Count 352 Potassium Level 4.5 Red Blood Count 4.17 L Red Cell Distribution Width 14.5 Sodium Level 139 Total Bilirubin 0.3 Total Protein 6.5 White Blood Count 19.3 #H Medications Medications Current Medications Levofloxacin/ Dextrose 150 ml @ 100 mls/hr Q24H IVPB Last administered on 05/17 14:10; Admin Dose 100 MLS/HR; Start 05/17/16 at 14:00 Metronidazole 100 ml @ 100 mls/hr Q8 IVPB Last administered on 05/18/16 05:06 ; Admin Dose 100 MLS/HR; Start 05/17/16 at 22:00 Sodium Chloride (NS) 1,000 ml @ 100 mls/hr Q10H IV Last administered on 09:45; Admin Dose 100 MLS/HR; Start 05/17/16 at 12:41 Ondansetron HCl (Zofran Inj) 4 mg Q6H PRN IV NAUSEA AND/OR VOMITING; Start at 13:00 Acetaminophen (Tylenol Tab) 650 mg Q6H PRN PO PAIN LEVEL 1-3 OR FEVER Last administered on 05/17/16 21:55; Admin Dose 650 MG; Start 05/17/16 at 13:00 Morphine Sulfate (morphine) 2 mg Q4H PRN IV SEVERE PAIN LEVEL 7-10 Last administered on 05/18/16 08:40; Admin Dose 2 MG; Start 05/17/16 at 13:00 Docusate Sodium (Colace) 100 mg Q12H PRN PO CONSTIPATION; Start 05/17/16 at 13: 00 Magnesium Hydroxide (Milk Of Mag) 30 ml DAILY PRN PO CONSTIPATION; Start at 13:00 Bisacodyl (Dulcolax Supp) 10 mg DAILY PRN [place] CONSTIPATION; Start 05/17/16 at 13 :00 Pantoprazole (Protonix Iv) 40 mg DAILY@06 IV Last administered on 05/18/16t 05: 06; Admin Dose 40 MG; Start 05/18/16 at 06:00 Procedures Procedures PROCEDURE: HIDA scan CLINICAL INDICATION: 45 -year-old patient with abdominal pain. TECHNIQUE: Following the intravenous injection of 8.6 mCi of Tc-99m mebrofenin, multiple images of the abdomen were obtained up to 90 minutes post injection. COMPARISON: No prior studies. FINDINGS: The liver is promptly visualized, demonstrates homogeneous distribution of radionuclide. There is visualization of the common bile duct and gastrointestinal activity within normal time. The gallbladder is not visualized up to 90 minutes post injection. IMPRESSION: 1. Nonvisualization of the gallbladder up to 90 minutes post injection. 2. No evidence of a common bile duct obstruction. MISAEL RIVER May 18, 2016 10:49
[2016-05-18] MEDS ORDERED: ALBUTEROL 0.5% (NEB) 2.5 MG/0.5 ML AMP HHN PRN (11:00)
[2016-05-18] MEDS ORDERED: BUPIVACAINE 0.25%/EPI (SDV) 30 ML INJ ONE (11:57)
[2016-05-18] MEDS ORDERED: PROPOFOL 20 ML ONE (12:32)
[2016-05-18] MEDS ORDERED: LIDOCAINE 100 MG SYRINGE ONE (12:32)
[2016-05-18] MEDS ORDERED: GLYCOPYRROLATE 1 MG INJ ONE (12:32)
[2016-05-18] MEDS ORDERED: NEOSTIGMINE 3 MG/3 ML SYRINGE ONE (12:32)
[2016-05-18] MEDS ORDERED: ROCURONIUM 50 MG INJ ONE (12:32)
[2016-05-18] MEDS ORDERED: ONDANSETRON 4 MG INJ ONE (12:33)
[2016-05-18] MEDS ORDERED: MIDAZOLAM 1 MG/ML 2 ML INJ ONE (12:33)
[2016-05-18] MEDS ORDERED: DEXAMETHASONE 4 MG/ML 1 ML INJ ONE (12:33)
[2016-05-18] MEDS ORDERED: MIDAZOLAM 1 MG/ML 2 ML INJ IV PRN (13:30)
[2016-05-18] MEDS ORDERED: FENTAnyl 50 MCG/ML VIAL IV PRN ×3 (13:30)
[2016-05-18] MEDS ORDERED: DIPHENHYDRAMINE 50 MG INJ IV PRN (13:30)
[2016-05-18] MEDS ORDERED: TRIMETHOBENZAMIDE 100 MG/ML VIAL IM PRN (13:30)
[2016-05-18] MEDS ORDERED: ONDANSETRON 4 MG INJ IV PRN ×2 (13:30→14:00)
[2016-05-18] MEDS ORDERED: HYDROmorphONE (0.2 MG/ML) 10ML SYG IV PRN ×3 (13:30)
[2016-05-18] MEDS ORDERED: LABETALOL HCL 20MG INJ IV PRN (13:30)
[2016-05-18] MEDS ORDERED: MEPERIDINE 25 MG INJ IV PRN (13:30)
[2016-05-18] MEDS ORDERED: hydrALAzine 20 MG INJ IV PRN (13:30)
[2016-05-18] MEDS ORDERED: EPHEDrine SULFATE 50 MG/5 ML SYG IV PRN (13:30)
[2016-05-18] MEDS ORDERED: morphine 2 MG INJ IV PRN (14:00)
[2016-05-18] MEDS ORDERED: OXYCODONE/ACETAMINOPHEN (5/325) TAB PO PRN (14:00)
--- NOTE | 2016-05-18 14:22 | OPR ---
DATE OF OPERATION: 05/18/2016 PREOPERATIVE DIAGNOSIS: Acute cholecystitis. POSTOPERATIVE DIAGNOSIS: Acute cholecystitis. PROCEDURE PERFORMED: 1. Laparoscopic cholecystectomy. 2. Placement of drain. SURGEON: Kostas Hoyt MD ANESTHESIA: General. ANESTHESIOLOGIST: Avery Mancia MD DESCRIPTION OF PROCEDURE: After satisfactory general anesthesia was achieved, the abdomen was prepp ed and draped in the usual fashion. The abdomen was insufflated with carbon dioxide through an umbi lical Veress needle to 15 mmHg pressure. The Veress needle was removed and the umbilical incision e xtended to 5 mm, through which a 5 mm trocar was placed. A 5 mm 0-degree lens was placed. Laparosc opy showed an acutely inflamed, edematous, indurated gallbladder. Under direct visualization, a 12 mm epigastric trocar was placed as well as two 5 mm right lateral abdominal trocars. The dome of th e gallbladder was grasped and retracted superiorly. Omental adhesions were peeled off the gallbladd er enabling the distal gallbladder to be grasped and retracted inferiorly. The hepatoduodenal ligam ent was carefully dissected. The cystic duct and artery were both identified and then triply hemocl ipped and divided between clips high at the junction of the gallbladder and cystic duct. Peritoneal attachments to the gallbladder were divided over clips. The gallbladder was then dissected from be low using electrocautery dissection. It was placed into an EndoCatch, removed via the epigastric ro [place]. Hemostasis of the liver bed was excellent. Because of the marked degree of inflammation and i nfection, a #19 round Umberto drain was placed, draining the gallbladder fossa and exited through the lateral most puncture site where it was secured to the skin with 2-0 silk. The gallbladder was cult ured. The abdomen was then desufflated and all trocars were removed. The fascia of the epigastrium was closed with 2 sutures of 0 Vicryl. The skin punctures were infiltrated with 30 mL of 0.25% Mar di with epinephrine and closed with manohar. Operative blood loss approximately 50 to 75 mL. Sp onge and needle counts reported as correct x2. The patient tolerated the procedure well and without incident or complication. Dictated By: KOSTAS PEDRAZA/HAYDEN Conf#: [id number] DID#: [id number] CC: KIKA CLAYTON MD;*[facility]*
[2016-05-18] MEDS: LEVOFLOXACIN 750MG/D5W (PMX) 150 ML IVPB SCH (16:08)
[2016-05-18] MEDS: OXYCODONE/ACETAMINOPHEN (5/325) TAB PO PRN (21:10)
[2016-05-19] MEDS: OXYCODONE/ACETAMINOPHEN (5/325) TAB PO PRN ×3 (01:55→14:22)
[2016-05-19] MEDS: SOD CHLORIDE 0.9% 1,000 ML IV SCH ×3 (04:17→23:38)
[2016-05-19] MEDS: metroNIDAZOLE 500 MG/NS (PMX) 100 ML IVPB SCH ×3 (05:51→21:41)
[2016-05-19] MEDS: PANTOPRAZOLE 40 MG INJ IV SCH (05:51)
[2016-05-19 05:56] LABS: BASOPHILS % 0.2 % (0.0-2.0); HEMOGLOBIN 10.9 g/dl (14.0-18.0); LYMPHOCYTES # 0.5 10^3/ul (0.8-2.9); LYMPHOCYTES % 2.7 % (15.0-51.0); MEAN CORPUSCULAR HEMOGLOBIN 27.6 pg (29.0-33.0); MEAN CORPUSCULAR HGB CONC 32.9 g/dl (32.0-37.0); MEAN CORPUSCULAR VOLUME 84.1 fl (82.0-101.0); MEAN PLATELET VOLUME 8.4 fl (7.4-10.4); MONOCYTE # 1.5 10^3/ul (0.3-0.9); MONOCYTES % 8.1 % (0.0-11.0); NEUTROPHIL # 16.3 10^3/ul (1.6-7.5); PLATELET COUNT 381 10^3/UL (140-440); RED BLOOD COUNT 3.92 10^6/ul (4.70-6.10); RED CELL DISTRIBUTION WIDTH 14.4 % (11.5-14.5); UNCORRECTED WBC 18.3 10^3/ul (4.8-10.8); WHITE BLOOD COUNT 18.3 10^3/ul (4.8-10.8)
[2016-05-19 06:20] LABS: CONDITION 1
[2016-05-19 06:38] LABS: MAGNESIUM 1.9 mg/dl (1.7-2.5); PHOSPHORUS 3.3 mg/dl (2.5-4.9)
[2016-05-19 06:51] LABS: POTASSIUM 4.6 mmol/L (3.5-5.1)
[2016-05-19 06:53] LABS: BILIRUBIN,INDIRECT 0.2 mg/dl (0-1.1); BILIRUBIN,TOTAL 0.2 mg/dl (0.2-1.3); CREATININE 1.14 mg/dl (0.61-1.24)
[2016-05-19 06:54] LABS: ALBUMIN/GLOBULIN RATIO 0.96; CALCIUM 8.5 mg/dl (8.4-10.2); TOTAL PROTEIN 6.1 g/dl (6.1-8.1)
[2016-05-19 07:54] VITALS: BP 112/79; RESP 18
--- NOTE | 2016-05-19 11:39 | PN ---
Date/Time of Note Date/Time of Note DATE: 05/19/16 TIME: 11:36 Assessment/Plan VTE Prophylaxis VTE Prophylaxis Intervention: ambulation, SCD's Lines/Catheters IV Catheter Type (from Nrs): Peripheral IV Urinary Cath still in place: No Assessment/Plan Assessment/Plan 45-year-old male with: 1. Acute cholecystitis s/p lap kenia with drain placement: POD #1. Case d/w Dr. Hoyt and we will keep patient in the hospital for monitoring of labs and post-op care. The plain is to d/c in AM if he continues to improve. I discussed the case with his mother over the phone. 2. Asthma: . Chest x-ray stable, nebulizer prn Prophylaxis. Sequential compression devices to lower extremities for deep venous thrombosis prophylaxis and Protonix for gastrointestinal prophylaxis. Disposition: D/C home in AM with nursing care for drain. Subjective 24 Hr Interval Summary Free Text/Dictation Feeling better today. Had two episodes of flatus, but no BM. Appetite is good. Exam/Review of Systems Vital Signs Vitals Vital Signs Date Time Temp Pulse Resp B/P Pulse Ox O2 Delivery O2 Flow Rate FiO2 05/19/16 07:54 98.3 85 18 112/79 96 05/19/16 00:31 2.0 05/18/16 18:00 Nasal Cannula Intake and Output 05/18/16 05/18/16 05/19/16 15:00 23:00 07:00 Intake Total 1950 ml 550 ml 1500 ml Output Total 125 ml 10 ml 975 ml Balance 1825 ml 540 ml 525 ml Exam Psych: no complaints Head: normocephalic Eyes: nl conjunctiva ENMT: nl external ears & nose Neck: supple Respiratory: clear to auscultation Cardiovascular: regular rate and rhythm Gastrointestinal: other (mild TTP over incision site where drain is.), soft Extremities: normal pulses Neurological: ARMHOLE SEWER 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 Results Result Diagram: 05/19/1642705/19/16427 Results 24 hrs Laboratory Tests Test 05/19/16 04:28 Alanine Aminotransferase (ALT/SGPT) 34 Albumin 3.0 L Albumin/Globulin Ratio 0.96 Alkaline Phosphatase 78 Anion Gap 16 Aspartate Amino Transf (AST/SGOT) 46 # Basophils # 0.0 Basophils % 0.2 Blood Morphology Comment Blood Urea Nitrogen 11 Calcium Level 8.5 Carbon Dioxide Level 22 Chloride Level 104 Creatinine 1.14 Direct Bilirubin 0.00 Eosinophils # 0.0 Eosinophils % 0.0 Globulin 3.10 Glucose Level 121 Hematocrit 33.0 L Hemoglobin 10.9 L Indirect Bilirubin 0.2 Lymphocytes # 0.5 L Lymphocytes % 2.7 L Magnesium Level 1.9 Mean Corpuscular Hemoglobin 27.6 L Mean Corpuscular Hemoglobin Concent 32.9 Mean Corpuscular Volume 84.1 Mean Platelet Volume 8.4 Monocytes # 1.5 H Monocytes % 8.1 Neutrophils # 16.3 H Neutrophils % 89.0 H Nucleated Red Blood Cells # 0.0 Nucleated Red Blood Cells % 0.0 Phosphorus Level 3.3 Platelet Count 381 Potassium Level 4.6 Red Blood Count 3.92 L Red Cell Distribution Width 14.4 Sodium Level 137 Total Bilirubin 0.2 Total Protein 6.1 White Blood Count 18.3 H Medications Medications Current Medications Levofloxacin/ Dextrose 150 ml @ 100 mls/hr Q24H IVPB Last administered on 05/18 16:08; Admin Dose 100 MLS/HR; Start 05/17/16 at 14:00 Metronidazole 100 ml @ 100 mls/hr Q8 IVPB Last administered on 05/19/16 05:51 ; Admin Dose 100 MLS/HR; Start 05/17/16 at 22:00 Sodium Chloride (NS) 1,000 ml @ 100 mls/hr Q10H IV Last administered on 04:17; Admin Dose 100 MLS/HR; Start 05/17/16 at 12:41 Ondansetron HCl (Zofran Inj) 4 mg Q6H PRN IV NAUSEA AND/OR VOMITING; Start at 13:00 Acetaminophen (Tylenol Tab) 650 mg Q6H PRN PO PAIN LEVEL 1-3 OR FEVER Last administered on 05/17/16 21:55; Admin Dose 650 MG; Start 05/17/16 at 13:00 Morphine Sulfate (morphine) 2 mg Q4H PRN IV SEVERE PAIN LEVEL 7-10 Last administered on 05/18/16 19:46; Admin Dose 2 MG; Start 05/17/16 at 13:00 Docusate Sodium (Colace) 100 mg Q12H PRN PO CONSTIPATION; Start 05/17/16 at 13: 00 Magnesium Hydroxide (Milk Of Mag) 30 ml DAILY PRN PO CONSTIPATION; Start at 13:00 Bisacodyl (Dulcolax Supp) 10 mg DAILY PRN [place] CONSTIPATION; Start 05/17/16 at 13 :00 Pantoprazole (Protonix Iv) 40 mg DAILY@06 IV Last administered on 05/19/16 05: 51; Admin Dose 40 MG; Start 05/18/16 at 06:00 Oxycodone/ Acetaminophen (Percocet (5/ 325)) 1 tab Q4H PRN PO MILD PAIN (1-3); Start 05/18/16 at 14:00 Oxycodone/ Acetaminophen (Percocet (5/ 325)) 2 tab Q4H PRN PO MODERATE PAIN (4- 6) Last administered on 05/19/16 08:13; Admin Dose 2 TAB; Start 05/18/16 at 14: 00 Morphine Sulfate (morphine) 2 mg ONCE PRN IV SEVERE PAIN LEVEL 7-10; Start 05/18 at 14:00 Ondansetron HCl (Zofran Inj) 4 mg Q6H PRN IV NAUSEA; Start 05/18/16 at 14:00 JUDD KIM MD May 19, 2016 11:39
--- NOTE | 2016-05-19 11:52 | CONS ---
Date/Time of Note Date/Time of Note DATE: 05/19/16 TIME: 11:48 Assessment/Plan Assessment/Plan Chief Complaint/Hosp Course Impression: 1. Acute cholecystitis s/p lap kenia with drain placement: POD #1. 2. Asthma: 3. Abdominal pain: improved Recommendaiton: 1. nebulizer prn 2. dc plan per surgery and primary 3. continue Protonix for gastrointestinal prophylaxis. 4. advance diet as tolerated. Problems: Consultation Date/Type/Reason Admit Date/Time May 17, 2016 at 08:51 Initial Consult Date Type of Consultation: Gastroenterology 24 HR Interval Summary Free Text/Dictation abdominal pain improved, tolerating po, no n/v, passing gas Constitutional: improved Exam/Review of Systems Vital Signs Vitals Vital Signs Date Time Temp Pulse Resp B/P Pulse Ox O2 Delivery O2 Flow Rate FiO2 05/19/16 07:54 98.3 85 18 112/79 96 05/19/16 00:31 2.0 05/18/16 18:00 Nasal Cannula Intake and Output 05/18/16 05/18/16 05/19/16 15:00 23:00 07:00 Intake Total 1950 ml 550 ml 1500 ml Output Total 125 ml 10 ml 975 ml Balance 1825 ml 540 ml 525 ml Exam Constitutional: alert, oriented, well developed Psych: nl mood/affect, no complaints Head: atraumatic, normocephalic Eyes: EOMI, nl conjunctiva, nl lids, nl sclera ENMT: mucosa pink and moist, nl external ears & nose, nl lips & teeth, nl nasal mucosa & septum Neck: non-tender, supple Respiratory: clear to auscultation, normal air movement Cardiovascular: nl pulses, regular rate and rhythm Gastrointestinal: bowel sounds, soft, tender (diffusely tender, surgical incision site c/d/i, LAYNE draining serosanguaneous fluid) Results Result Diagram: 05/19/1642705/19/16427 Results 24 hrs Laboratory Tests Test 05/19/16 04:28 Alanine Aminotransferase (ALT/SGPT) 34 Albumin 3.0 L Albumin/Globulin Ratio 0.96 Alkaline Phosphatase 78 Anion Gap 16 Aspartate Amino Transf (AST/SGOT) 46 # Basophils # 0.0 Basophils % 0.2 Blood Morphology Comment Blood Urea Nitrogen 11 Calcium Level 8.5 Carbon Dioxide Level 22 Chloride Level 104 Creatinine 1.14 Direct Bilirubin 0.00 Eosinophils # 0.0 Eosinophils % 0.0 Globulin 3.10 Glucose Level 121 Hematocrit 33.0 L Hemoglobin 10.9 L Indirect Bilirubin 0.2 Lymphocytes # 0.5 L Lymphocytes % 2.7 L Magnesium Level 1.9 Mean Corpuscular Hemoglobin 27.6 L Mean Corpuscular Hemoglobin Concent 32.9 Mean Corpuscular Volume 84.1 Mean Platelet Volume 8.4 Monocytes # 1.5 H Monocytes % 8.1 Neutrophils # 16.3 H Neutrophils % 89.0 H Nucleated Red Blood Cells # 0.0 Nucleated Red Blood Cells % 0.0 Phosphorus Level 3.3 Platelet Count 381 Potassium Level 4.6 Red Blood Count 3.92 L Red Cell Distribution Width 14.4 Sodium Level 137 Total Bilirubin 0.2 Total Protein 6.1 White Blood Count 18.3 H Medications Medications Current Medications Levofloxacin/ Dextrose 150 ml @ 100 mls/hr Q24H IVPB Last administered on 05/18 16:08; Admin Dose 100 MLS/HR; Start 05/17/16 at 14:00 Metronidazole 100 ml @ 100 mls/hr Q8 IVPB Last administered on 05/19/16 05:51 ; Admin Dose 100 MLS/HR; Start 05/17/16 at 22:00 Sodium Chloride (NS) 1,000 ml @ 100 mls/hr Q10H IV Last administered on 04:17; Admin Dose 100 MLS/HR; Start 05/17/16 at 12:41 Ondansetron HCl (Zofran Inj) 4 mg Q6H PRN IV NAUSEA AND/OR VOMITING; Start at 13:00 Acetaminophen (Tylenol Tab) 650 mg Q6H PRN PO PAIN LEVEL 1-3 OR FEVER Last administered on 05/17/16 21:55; Admin Dose 650 MG; Start 05/17/16 at 13:00 Morphine Sulfate (morphine) 2 mg Q4H PRN IV SEVERE PAIN LEVEL 7-10 Last administered on 05/18/16 19:46; Admin Dose 2 MG; Start 05/17/16 at 13:00 Docusate Sodium (Colace) 100 mg Q12H PRN PO CONSTIPATION; Start 05/17/16 at 13: 00 Magnesium Hydroxide (Milk Of Mag) 30 ml DAILY PRN PO CONSTIPATION; Start at 13:00 Bisacodyl (Dulcolax Supp) 10 mg DAILY PRN [place] CONSTIPATION; Start 05/17/16 at 13 :00 Pantoprazole (Protonix Iv) 40 mg DAILY@06 IV Last administered on 05/19/16 05: 51; Admin Dose 40 MG; Start 05/18/16 at 06:00 Oxycodone/ Acetaminophen (Percocet (5/ 325)) 1 tab Q4H PRN PO MILD PAIN (1-3); Start 05/18/16 at 14:00 Oxycodone/ Acetaminophen (Percocet (5/ 325)) 2 tab Q4H PRN PO MODERATE PAIN (4- 6) Last administered on 05/19/16 08:13; Admin Dose 2 TAB; Start 05/18/16 at 14: 00 Morphine Sulfate (morphine) 2 mg ONCE PRN IV SEVERE PAIN LEVEL 7-10; Start 05/18 at 14:00 Ondansetron HCl (Zofran Inj) 4 mg Q6H PRN IV NAUSEA; Start 05/18/16 at 14:00 LISA MARCELO MD May 19, 2016 11:51
--- NOTE | 2016-05-19 11:53 | PN ---
DATE: 05/19/2016 Postoperative day #1. The patient is markedly symptomatically improved. He has been afebrile [facility] since surgery. His abdominal examination is benign, LAYNE drainage is serosanguineous. LABORATORY DATA: White blood cell count has come down from 19,300 to 18,300. BUN, glucose, electro lytes are unremarkable, as are the LFTs. PLAN: Continue medical management. The patient should be cleared for discharge home tomorrow. The drain will be removed prior to discharge. Dictated By: KOSTAS PEDRAZA/HAYDEN Conf#: [id number] DID#: [id number]
[2016-05-19] MEDS: LEVOFLOXACIN 750MG/D5W (PMX) 150 ML IVPB SCH (15:28)
[2016-05-19 20:00] VITALS: BP 118/73; RESP 18
[2016-05-19] MEDS: ONDANSETRON 4 MG INJ IV PRN (23:23)
[2016-05-19 23:24] VITALS: BP 128/78; PULSE 71; RESP 16
[2016-05-20 05:12] LABS: ALBUMIN 2.9 g/dl (3.3-4.9)
[2016-05-20 05:13] LABS: POTASSIUM 4.1 mmol/L (3.5-5.1)
[2016-05-20 05:15] LABS: CREATININE 1.05 mg/dl (0.61-1.24)
[2016-05-20 05:16] LABS: ALBUMIN/GLOBULIN RATIO 0.93; CALCIUM 8.3 mg/dl (8.4-10.2)
[2016-05-20] MEDS: metroNIDAZOLE 500 MG/NS (PMX) 100 ML IVPB SCH ×2 (05:17→13:20)
[2016-05-20] MEDS: PANTOPRAZOLE 40 MG INJ IV SCH (05:17)
[2016-05-20] MEDS: ONDANSETRON 4 MG INJ IV PRN (05:21)
[2016-05-20 05:34] LABS: BASOPHIL # 0.2 10^3/ul (0.0-0.1); BASOPHILS % 1.5 % (0.0-2.0); EOSINOPHILS % 0.2 % (0.0-7.0); HEMATOCRIT 33.3 % (42.0-52.0); HEMOGLOBIN 10.9 g/dl (14.0-18.0); MEAN CORPUSCULAR HEMOGLOBIN 27.5 pg (29.0-33.0); MEAN CORPUSCULAR HGB CONC 32.7 g/dl (32.0-37.0); MEAN PLATELET VOLUME 8.4 fl (7.4-10.4); MONOCYTE # 1.7 10^3/ul (0.3-0.9); MONOCYTES % 10.1 % (0.0-11.0); NEUTROPHIL # 13.6 10^3/ul (1.6-7.5); NEUTROPHILS % 82.2 % (39.0-77.0); PLATELET COUNT 412 10^3/UL (140-440); RED BLOOD COUNT 3.97 10^6/ul (4.70-6.10); RED CELL DISTRIBUTION WIDTH 14.4 % (11.5-14.5); UNCORRECTED WBC 16.5 10^3/ul (4.8-10.8); WHITE BLOOD COUNT 16.5 10^3/ul (4.8-10.8)
[2016-05-20 06:12] LABS: CONDITION 1
[2016-05-20] MEDS: SOD CHLORIDE 0.9% 1,000 ML IV SCH (06:13)
[2016-05-20] MEDS: OXYCODONE/ACETAMINOPHEN (5/325) TAB PO PRN (06:13)
[2016-05-20 07:38] VITALS: BP 128/73; RESP 16
--- NOTE | 2016-05-20 13:48 | PN ---
DATE: 05/20/2016 SUBJECTIVE: Laparoscopic cholecystectomy, postoperative day #2. Patient remains markedly symptomat ically improved. He is afebrile, and his white blood cell count has come down to 16,500. His LFTs are normal. PHYSICAL EXAMINATION: ABDOMEN: Soft and nontender. The LAYNE is draining minimal serous fluid. PLAN: LAYNE drain was removed at the bedside. The patient is cleared for discharge home today. Offic e followup 1 week for staple removal. Dictated By: KOSTAS PEDRAZA/HAYDEN Conf#: [id number] DID#: [id number]
[2016-05-20] MEDS: LEVOFLOXACIN 750MG/D5W (PMX) 150 ML IVPB SCH (14:45)
--- NOTE | 2016-05-20 15:27 | CONS ---
Date/Time of Note Date/Time of Note DATE: 05/20/16 TIME: 15:26 Assessment/Plan Assessment/Plan Chief Complaint/Hosp Course Impression: 1. Acute cholecystitis s/p lap kenia with drain placement: POD #2. 2. Asthma: 3. Abdominal pain: improved Recommendaiton: 1. nebulizer prn 2. dc plan per surgery and primary 3. continue Protonix for gastrointestinal prophylaxis. 4. advance diet as tolerated. Problems: Consultation Date/Type/Reason Admit Date/Time May 17, 2016 at 08:51 Type of Consultation: Gastroenterology 24 HR Interval Summary Free Text/Dictation ambulating, reduced abdominal pain, LAYNE drain removed. Exam/Review of Systems Vital Signs Vitals Vital Signs Date Time Temp Pulse Resp B/P Pulse Ox O2 Delivery O2 Flow Rate FiO2 05/20/16 07:38 97.9 88 16 128/73 95 05/19/16 23:24 Room Air 05/19/16 17:00 2.0 Intake and Output 05/19/16 05/19/16 05/20/16 15:00 23:00 07:00 Intake Total 1800 ml 1740 ml Output Total 720 ml 870 ml Balance 1080 ml 870 ml Exam Constitutional: alert, oriented, well developed Psych: nl mood/affect, no complaints Head: atraumatic, normocephalic Eyes: EOMI, nl conjunctiva, nl lids, nl sclera ENMT: mucosa pink and moist, nl external ears & nose, nl lips & teeth, nl nasal mucosa & septum Neck: non-tender, supple Respiratory: clear to auscultation, normal air movement Cardiovascular: nl pulses, regular rate and rhythm Gastrointestinal: bowel sounds, soft, tender (at incisional sites) Results Result Diagram: 05/20/16 0419 05/20/16 0419 Results 24 hrs Laboratory Tests Test 05/20/16 04:19 Alanine Aminotransferase (ALT/SGPT) 35 Albumin 2.9 L Albumin/Globulin Ratio 0.93 Alkaline Phosphatase 76 Anion Gap 13 Aspartate Amino Transf (AST/SGOT) 30 Basophils # 0.2 H Basophils % 1.5 Blood Morphology Comment Blood Urea Nitrogen 14 Calcium Level 8.3 L Carbon Dioxide Level 24 Chloride Level 104 Creatinine 1.05 Direct Bilirubin 0.00 Eosinophils # 0.0 Eosinophils % 0.2 Globulin 3.10 Glucose Level 114 Hematocrit 33.3 L Hemoglobin 10.9 L Indirect Bilirubin 0.0 Lymphocytes # 1.0 Lymphocytes % 6.0 L Mean Corpuscular Hemoglobin 27.5 L Mean Corpuscular Hemoglobin Concent 32.7 Mean Corpuscular Volume 84.0 Mean Platelet Volume 8.4 Monocytes # 1.7 H Monocytes % 10.1 Neutrophils # 13.6 H Neutrophils % 82.2 H Nucleated Red Blood Cells # 0.0 Nucleated Red Blood Cells % 0.0 Platelet Count 412 Potassium Level 4.1 Red Blood Count 3.97 L Red Cell Distribution Width 14.4 Sodium Level 137 Total Bilirubin 0.0 L Total Protein 6.0 L White Blood Count 16.5 H Medications Medications Current Medications Levofloxacin/ Dextrose 150 ml @ 100 mls/hr Q24H IVPB Last administered on 05/20 14:45; Admin Dose 100 MLS/HR; Start 05/17/16 at 14:00 Metronidazole 100 ml @ 100 mls/hr Q8 IVPB Last administered on 05/20/16 13:20 ; Admin Dose 100 MLS/HR; Start 05/17/16 at 22:00 Sodium Chloride (NS) 1,000 ml @ 100 mls/hr Q10H IV Last administered on 06:13; Admin Dose 100 MLS/HR; Start 05/17/16 at 12:41 Ondansetron HCl (Zofran Inj) 4 mg Q6H PRN IV NAUSEA AND/OR VOMITING Last administered on 05/20/16 05:21; Admin Dose 4 MG; Start 05/17/16 at 13:00 Acetaminophen (Tylenol Tab) 650 mg Q6H PRN PO PAIN LEVEL 1-3 OR FEVER Last administered on 05/17/16 21:55; Admin Dose 650 MG; Start 05/17/16 at 13:00 Morphine Sulfate (morphine) 2 mg Q4H PRN IV SEVERE PAIN LEVEL 7-10 Last administered on 05/18/16 19:46; Admin Dose 2 MG; Start 05/17/16 at 13:00 Docusate Sodium (Colace) 100 mg Q12H PRN PO CONSTIPATION; Start 05/17/16 at 13: 00 Magnesium Hydroxide (Milk Of Mag) 30 ml DAILY PRN PO CONSTIPATION; Start at 13:00 Bisacodyl (Dulcolax Supp) 10 mg DAILY PRN [place] CONSTIPATION; Start 05/17/16 at 13 :00 Pantoprazole (Protonix Iv) 40 mg DAILY@06 IV Last administered on 05/20/16 05: 17; Admin Dose 40 MG; Start 05/18/16 at 06:00 Oxycodone/ Acetaminophen (Percocet (5/ 325)) 1 tab Q4H PRN PO MILD PAIN (1-3); Start 05/18/16 at 14:00 Oxycodone/ Acetaminophen (Percocet (5/ 325)) 2 tab Q4H PRN PO MODERATE PAIN (4- 6) Last administered on 05/20/16 06:13; Admin Dose 2 TAB; Start 05/18/16 at 14: 00 Morphine Sulfate (morphine) 2 mg ONCE PRN IV SEVERE PAIN LEVEL 7-10; Start 05/18 at 14:00 Ondansetron HCl (Zofran Inj) 4 mg Q6H PRN IV NAUSEA; Start 05/18/16 at 14:00 LISA MARCELO MD May 20, 2016 15:27
--- NOTE | 2016-05-20 16:39 | PDOCDIS ---
Discharge Instructions DIAGNOSIS Discharge Diagnosis: Acute cholecystitis CONDITION Patient Condition: Good HOME CARE INSTRUCTIONS: Diet Instructions: Low Fat /CholesterolSpecial Diet: low fat diet ACTIVITY: Activity Restrictions: Slowly Increase Activity Rest between Activity Avoid heavy lifting Bathing Restrictions: Shower FOLLOW UP/APPOINTMENTS Appointments Dr. Hoyt in 1-2 weeks PCP in 1-2 weeks SCHOOL/WORK RELEASE May return to School/Work with: With Restrictions School/Work Release Comment: No heavy lifting greater than 10 pounds. JUDD KIM MD May 20, 2016 16:38
[2016-05-20] MEDS ORDERED: CEPH500C PO (16:43)
[2016-05-20] MEDS ORDERED: Oxycodone/Acetamin (5/325) PO (16:43)
[2016-05-20] MEDS ORDERED: LEVO500T72 PO (16:52)
[2016-05-20] MEDS ORDERED: METR500T PO (16:52)
--- NOTE | 2016-05-20 20:06 | DS ---
DATE OF ADMISSION: 05/17/2016 DATE OF DISCHARGE: 05/20/2016 FINAL DIAGNOSES: 1. Acute cholecystitis: Resolved. The patient underwent laparoscopic cholecystectomy. 2. Asthma. HOSPITAL COURSE: The patient is a very pleasant 45-year-old -[place] male who presented to the emergency department with abdominal pain for 48 hours prior to presentation. He had right flank pain, right upper quadrant pain, episodes of nausea and vomiting over the last 48 hours. He was admitted by my associate, Dr. River, and his workup revealed acute cholecystitis without common bile duct dilatation. The patient was kept n.p.o. and started on Levaquin and Flagyl given his PENICILLIN ALLERGY. Dr. Hoyt performed a laparoscopic cholecystectomy on the patient. He fared well after surgery and a drain was placed. The drain was removed on postoperative day #2 while the patient was ambulating without difficulty, tolerating a regular diet, and his pain was controlled with oral Percocet. I had a lengthy discussion with Dr. Hoyt, as well as the patient, all of whom were in agreement, that he could be safely discharged home. The patient has a PENICILLIN ALLERGY and will be discharged home on Levaquin and Flagyl. CONDITION ON DISCHARGE: Stable. DISPOSITION: Discharged to home. DISCHARGE MEDICATIONS: 1. Levaquin 500 mg p.o. daily. 2. Flagyl 500 mg p.o. t.i.d. for 7 days. 3. [place] 5/325 one p.o. q.4h. p.r.n. pain. FOLLOWUP VISIT: The patient is to follow with Dr. Mahesh Hoyt in 1 to 2 weeks , as well as primary care physician in 1 to 2 weeks. Dictated By: JUDD VILLEGAS/NTS Conf#: [id number] DID#: [id number] CC: MISAEL RIVER MD;*EndCC* MTDD
== END 2016-05-20 18:30 | disposition home or self-care (01) | DRG 419 ==
LOC: E/R 01:59 → MS1 08:51
PROVIDERS: ADMIT Internal Medicine; ATTEND Internal Medicine
PROC: 0FT44ZZ Resection of Gallbladder, Percutaneous Endoscopic Approach (ICD-10-PCS; principal; 2016-05-17)
DX: K81.0 Acute cholecystitis (principal); J45.909 Unspecified asthma, uncomplicated
CPT/HCPCS: 71010; 74176; 76705; 78226; 80053; 81001; 81003; 83605; 83690; 83735; 84100; 85025; 85610; 85730; 87040; 87070; 88304; 93005; 96374; 96375; 96376; A9537; C9113; J0131; J0690; J0696; J1100; J1956; J2001; J2250; J2270; J2405; J2710; J3010; J7030

== ENCOUNTER 2016-07-31 02:00 | Emergency (ER) | payer OTHER ==
[~2016-07-31] VITALS: Ht 172.7 cm; Wt 88.6 kg
[~2016-07-31 02:00] MED LIST changes: -ALBU18HF INHALATION; -ALBU8.5H3 INH; +LEVO500T72 PO; +METR500T PO; +Oxycodone/Acetamin (5/325) PO; -PRED20TA PO
[2016-07-31 02:03] VITALS: Ht 172.7 cm; Wt 88.6 kg
[2016-07-31] MEDS ORDERED: ALBUTEROL 0.5% (NEB) 2.5 MG/0.5 ML AMP INH STA (02:10)
[2016-07-31] MEDS ORDERED: DEXAMETHASONE 10 MG/ML 1 ML INJ IM STA (02:10)
[2016-07-31] MEDS ORDERED: IPRATROPIUM (NEB) 0.5 MG/2.5 ML AMP INH STA (02:10)
[2016-07-31] MEDS ORDERED: IBUP800T25 PO (02:21)
[2016-07-31] MEDS ORDERED: ALBU18HF INHALATION ×2 (02:21→04:03)
--- NOTE | 2016-07-31 03:45 | RADRPT ---
PROCEDURE: Chest. CLINICAL INDICATION: Shortness of breath. TECHNIQUE: Single frontal view of the chest was obtained. COMPARISON: 05/17/2016. FINDINGS: The cardiac silhouette is within normal limits. The aortic arch is unremarkable. There is no focal consolidation, vascular congestion or pleural effusion. There is no pneumothorax. IMPRESSION: No evidence for active cardiopulmonary disease. .Rick Hernández MD, Date Time Electronically viewed and signed by .Rick Hernández MD, on 07/31/2016 03:45 .T/
--- NOTE | 2016-07-31 04:02 | ERD ---
ER Documentation Chief Complaint Date/Time DATE: 07/31/16 TIME: 04:02 Chief Complaint SOB X 3 MINS. RAN OUT OF RESCUE INHALER HPI This is a 45-year-old male, shortness of breath for the past 3 minutes. He said he ran out of his rescue inhaler. Denies any fevers or chills. Denies any nausea vomiting. Denies any chest pain. ROS All systems reviewed and are negative except as per history of present illness. Medications Home Meds Active Scripts Metronidazole* (Flagyl*) 500 Mg Tablet, 500 MG PO QID for 7 Days, #21 TAB 0 Refills Prov:JUDD KIM MD 05/20/16 Levofloxacin* (Levaquin*) 500 Mg Tablet, 500 MG PO DAILY for 7 Days, #7 TAB Prov:JUDD KIM MD 05/20/16 Reported Medications Albuterol Sulfate* (Ventolin HFA*) 18 Gm Hfa.aer.ad, 2 PUFF INHALATION Q4H, #1 INHALER 07/31/16 Ibuprofen* (Ibuprofen*) 800 Mg Tab, 800 MG PO Q6H Y for PAIN, TAB 07/31/16 Discontinued Scripts [Oxycodone/Acetamin (5/325)] 1 TAB TAB No Conflict Check, 1 TAB PO Q4H Y for MILD PAIN (1-3) Prov:JUDD KIM MD 05/20/16 Allergies Allergies: Coded Allergies: Penicillins (Verified Allergy, Unknown, 07/31/16) JULY 31, 2016: PATIENT SAID HE HAS NO KNOWN DRUG ALLERGIES EVEN I MENTIONED PENICILLINS WAS LISTED HERE. PMhx/Soc History of Surgery: Yes (LEFT ANKLE SX- 2000) Anesthesia Reaction: No Hx Neurological Disorder: No Hx Respiratory Disorders: Yes (asthma) Hx Cardiac Disorders: No Hx Psychiatric Problems: No Hx Miscellaneous Medical Probl: No Hx Alcohol Use: No Hx Substance Use: No Hx Tobacco Use: No Smoking Status: Never smoker Physical Exam Vitals Vital Signs Date Time Temp Pulse Resp B/P Pulse Ox O2 Delivery O2 Flow Rate FiO2 07/31/16 02:22 90 30 97 21 07/31/16 02:13 Nasal Cannula 07/31/16 02:10 Nasal Cannula 2.0 07/31/16 02:03 97.0 97 38 111/79 95 Physical Exam Const: [] Head: Atraumatic Eyes: Normal Conjunctiva ENT: Normal External Ears, Nose and Mouth. Neck: Full range of motion..~ No meningismus. Resp: Scattered wheezes bilaterally Cardio: Regular rate and rhythm, no murmurs Abd: Soft, non tender, non distended. Normal bowel sounds Skin: No petechiae or rashes Back: No midline or flank tenderness Ext: No cyanosis, or edema Neur: Awake and alert Psych: Normal Mood and Affect Results 24 hrs Current Medications Medications (Trade) Dose Ordered Sig/Trevon Route PRN Reason Start Time Stop Time Status Last Admin Dose Admin Albuterol (Proventil 0.5% (Neb)) 10 mg ONCE STAT INH 07/31/16 02:10 07/31/16 02:11 DC 07/31/16 02:22 Ipratropium [place] (Atrovent 0.02% (Neb)) 1 mg ONCE STAT INH 07/31/16 02:10 07/31/16 02:11 DC 07/31/16 02:22 Dexamethasone (Decadron) 10 mg ONCE STAT IM 07/31/16 02:10 07/31/16 02:11 DC 07/31/16 02:23 Procedures/MDM Patient's respiratory status has stabilized while in the department and is appropriate for outpatient work up. Exam and work up not consistent w/ impending respiratory failure or cardiovascular collapse. Departure Diagnosis: Primary Impression: Asthma attack Condition: Stable HANDY WINCHESTER July 31, 2016 04:02
[2016-07-31 04:23] VITALS: BP 165/85; PULSE 101; RESP 20; TEMP 97.4
== END 2016-07-31 04:24 | disposition home or self-care (01) ==
LOC: E/R 02:00
DX: J45.909 Unspecified asthma, uncomplicated (principal)
CPT/HCPCS: 71010; 94644; 96372; J1100; Z7502; Z7610

== ENCOUNTER 2016-10-28 03:16 | Emergency (ER) | payer OTHER ==
[~2016-10-28] VITALS: Ht 167.6 cm; Wt 89.5 kg
[~2016-10-28 03:16] MED LIST changes: +ALBU18HF INHALATION; +IBUP800T25 PO; -Oxycodone/Acetamin (5/325) PO
[2016-10-28 03:26] VITALS: Ht 167.6 cm; Wt 89.5 kg
[2016-10-28] MEDS ORDERED: ALBUTEROL 0.5% (NEB) 2.5 MG/0.5 ML AMP INH STA (03:28)
[2016-10-28] MEDS ORDERED: IPRATROPIUM (NEB) 0.5 MG/2.5 ML AMP NEB STA (03:28)
--- NOTE | 2016-10-28 03:48 | RADRPT ---
PROCEDURE: Chest. CLINICAL INDICATION: Chest pain. TECHNIQUE: Single frontal view of the chest was obtained. COMPARISON: 07/31/2016. FINDINGS: The cardiac silhouette is within normal limits. The aortic arch is unremarkable. There is no focal consolidation, vascular congestion or pleural effusion. There is no pneumothorax. IMPRESSION: No evidence for active cardiopulmonary disease. .Rick Hernández MD, Date Time Electronically viewed and signed by .Rick Hernández MD, on 10/28/2016 03:48 .T/
--- NOTE | 2016-10-28 03:51 | ERD ---
ER Documentation Chief Complaint Date/Time DATE: 10/28/16 TIME: 03:42 Chief Complaint asthma/sob x 1 hour HPI 46 yo male presents here in emergency department for complaints of cough shortness of breath and wheezing that started one hour prior to arrival. Patient has history asthma. Patient does not have his inhaler ran out of his inhaler. Patient denies any fever or chills. Patient denies any chest palpitations. Patient denies any sick contacts. ROS All systems reviewed and are negative except as per history of present illness. Medications Home Meds Active Scripts Cetirizine Hcl* (Zyrtec*) 10 Mg Capsule, 10 MG PO DAILY, #30 TAB.CHEW Prov:KERWIN GARCIA NP 10/28/16 Psopjffwtcw-Z-Nyitxkuhok Hb* (Guaifenesin* DM Syrup) 120 Ml Syrup, 10 ML PO Q4H Y for COUGH, #120 ML Prov:KERWIN GARCIA NP 10/28/16 Albuterol Sulfate* (Proair HFA*) 8.5 Gm Hfa.aer.ad, 2 PUFF INH Q4H Y for WHEEZING AND SOB, #1 INHALER Prov:KERWIN GARCIA NP 10/28/16 Albuterol Sulfate* (Ventolin HFA*) 18 Gm Hfa.aer.ad, 2 PUFF INHALATION Q4H, #1 INHALER Prov:HANDY W[place] 07/31/16 Metronidazole* (Flagyl*) 500 Mg Tablet, 500 MG PO QID for 7 Days, #21 TAB 0 Refills Prov:JUDD KIM MD 05/20/16 Levofloxacin* (Levaquin*) 500 Mg Tablet, 500 MG PO DAILY for 7 Days, #7 TAB Prov:JUDD KIM MD 05/20/16 Reported Medications Albuterol Sulfate* (Ventolin HFA*) 18 Gm Hfa.aer.ad, 2 PUFF INHALATION Q4H, #1 INHALER 07/31/16 Ibuprofen* (Ibuprofen*) 800 Mg Tab, 800 MG PO Q6H Y for PAIN, TAB 07/31/16 Allergies Allergies: Coded Allergies: Penicillins (Verified Allergy, Unknown, 07/31/16) JULY 31, 2016: PATIENT SAID HE HAS NO KNOWN DRUG ALLERGIES EVEN I MENTIONED PENICILLINS WAS LISTED HERE. PMhx/Soc History of Surgery: Yes (LEFT ANKLE SX- 1999) Anesthesia Reaction: No Hx Neurological Disorder: No Hx Respiratory Disorders: Yes (asthma) Hx Cardiac Disorders: No Hx Psychiatric Problems: No Hx Miscellaneous Medical Probl: No Hx Alcohol Use: No Hx Substance Use: No Hx Tobacco Use: No Smoking Status: Never smoker FmHx Family History: No coronary disease, No diabetes, No other Physical Exam Vitals Vital Signs Date Time Temp Pulse Resp B/P Pulse Ox O2 Delivery O2 Flow Rate FiO2 10/28/16 03:33 86 20 96 21 10/28/16 03:26 97.6 86 26 115/71 96 Physical Exam GENERAL: The patient is well developed and appropriate for usual state of health, in no apparent distress. CHEST: Diffuse wheezing bilaterally. There are no rales, crackles or rhonchi. HEART: Regular rate and rhythm. No murmurs, clicks, rubs or gallops. No S3 or S4. ABDOMEN: Soft, nontender and nondistended. Good bowel sounds. No rebound or guarding. No gross peritonitis. No gross organomegaly or masses. No Pérez sign or McBurney point tenderness. BACK: No midline or flank tenderness. EXTREMITIES: Equal pulses bilaterally. There is no peripheral clubbing, cyanosis or edema. No focal swelling or erythema. Full range of motion. Grossly neurovascularly intact. NEURO: Alert and oriented. Cranial nerves 2-12 intact. Motor strength in all 4 extremities with 5/5 strength. Sensation grossly intact. Normal speech and gait. SKIN: There is no apparent rash or petechia. The skin is warm and dry. HEMATOLOGIC AND LYMPHATIC: There is no evidence of excessive bruising or lymphedema. No gross cervical, axillary, or inguinal lymphadenopathy. Results 24 hrs Current Medications Medications (Trade) Dose Ordered Sig/Trevon Route PRN Reason Start Time Stop Time Status Last Admin Dose Admin Ipratropium [place] (Atrovent 0.02% (Neb)) 0.5 mg ONCE STAT NEB 10/28/16 03:28 10/28/16 03:29 DC 10/28/16 03:33 Albuterol (Proventil 0.5% (Neb)) 10 mg ONCE STAT INH 10/28/16 03:28 10/28/16 03:29 DC 10/28/16 03:33 Breathing treatment of albuterol and Atrovent was given here in emergency department, after treatment, patient's lungs sounds are clear and patient's oxygenation is better. Patient verbalized feeling much better. PROCEDURE: Chest. CLINICAL INDICATION: Chest pain. TECHNIQUE: Single frontal view of the chest was obtained. COMPARISON: 07/31/2016. FINDINGS: The cardiac silhouette is within normal limits. The aortic arch is unremarkable. There is no focal consolidation, vascular congestion or pleural effusion. There is no pneumothorax. IMPRESSION: No evidence for active cardiopulmonary disease. .Rick Hernández MD, MD Date Time Electronically viewed and signed by .Rick Hernández MD, on 10/28/2016 03:48 Procedures/MDM Medical Decision Making: Patient symptoms are most likely consistent with acute bronchitis with acute asthma exacerbation, which viral in origin. There is low suspicion for Pneumonia at this time since patients lungs sounds are clear, patient O2 saturation is normal and patient doesnt show any respiratory distress. Patients chest xray doesnt show infiltrates or any other cardiopulmonary emergencies at this time. There is low suspicion for other cardiopulmonary emergencies at this time such as CHF, Pulmonary Embolism, Pneumothorax, or any other cardiopulmonary emergencies at this time. There is low suspicion for sepsis. Patient appears well and is hemodynamically stable. Patient does not have any fever. Disposition: Home. Condition: Stable Prescriptions: Albuterol, guaifenesin DM Zyrtec Instructions: Patient is advised to take medications as prescribed. Patient is advised to rest. Patient advised to increase fluid intake, do humidifier at home and if possible, do salt water gargles. Patient is advised that if symptoms are worse, shortness of breath, uncontrolled fever, stridor, vomiting, worst signs and symptoms to return to emergency department immediately. Otherwise, patient is advised to follow up with primary doctor in 5-7 days. Departure Diagnosis: Primary Impression: Asthma with acute exacerbation Asthma severity: unspecified severity Qualified Code: J45.901 - Asthma with acute exacerbation, unspecified asthma severity Additional Impression: Acute bronchitis Bronchitis organism: unspecified organism Qualified Code: J20.9 - Acute bronchitis, unspecified organism Condition: Stable Patient Instructions: Bronchitis With Wheezing (Adult) Additional Instructions: Patient is advised to take medications as prescribed. Patient is advised to rest. Patient advised to increase fluid intake, do humidifier at home and if possible, do salt water gargles. Patient is advised that if symptoms are worse, shortness of breath, uncontrolled fever, stridor, vomiting, worst signs and symptoms to return to emergency department immediately. Otherwise, patient is advised to follow up with primary doctor in 5-7 days. KERWIN GARCIA NP Oct 28, 2016 03:51
[2016-10-28] MEDS ORDERED: CETI10CA PO (04:08)
[2016-10-28] MEDS ORDERED: ALBU8.5H3 INH (04:08)
[2016-10-28] MEDS ORDERED: GUAI120S26 PO (04:08)
[2016-10-28 05:00] VITALS: BP 122/78; PULSE 103; RESP 20
== END 2016-10-28 05:01 | disposition home or self-care (01) ==
LOC: FTE 03:16
DX: J45.901 Unspecified asthma with (acute) exacerbation (principal); J20.9 Acute bronchitis, unspecified
CPT/HCPCS: 71010; 94644; Z7502; Z7610

== ENCOUNTER 2016-12-30 04:24 | Emergency (ER) | payer OTHER ==
[~2016-12-30] VITALS: Ht 167.6 cm; Wt 95.5 kg
[~2016-12-30 04:24] MED LIST changes: +ALBU8.5H3 INH; +CETI10CA PO; +GUAI120S26 PO
[2016-12-30 04:25] VITALS: Ht 167.6 cm; Wt 95.5 kg
[2016-12-30] MEDS ORDERED: ALBUTEROL 0.5% (NEB) 2.5 MG/0.5 ML AMP INH STA (04:36)
[2016-12-30] MEDS ORDERED: METHYLPREDNISOLONE 125 MG INJ IM STA (04:36)
[2016-12-30] MEDS ORDERED: IPRATROPIUM (NEB) 0.5 MG/2.5 ML AMP NEB STA (04:36)
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
--- NOTE | 2016-12-30 05:32 | RADRPT ---
PROCEDURE: XR Chest. CLINICAL INDICATION: Asthma exacerbation TECHNIQUE: AP Portable chest. COMPARISON: 10/28/2016 FINDINGS: The cardiomediastinal silhouette is normal. The aorta is normal. There is bibasilar atelectasis, gre ater on the left. No focal consolidation, pleural effusion or pneumothorax is seen. The osseous st ructures are intact. IMPRESSION: Bibasilar atelectasis. Physician Diana Date Time Electronically viewed and signed by Ashely Hua Physician on 12/30/2016 05:31 CS/
[2016-12-30] MEDS ORDERED: ALBU8.5H3 INH (05:43)
[2016-12-30] MEDS ORDERED: CETI10CA PO (05:43)
[2016-12-30] MEDS ORDERED: PRED50TA PO (05:43)
[2016-12-30] MEDS ORDERED: GUAI120S26 PO (05:43)
[2016-12-30 06:01] VITALS: PULSE 84
== END 2016-12-30 06:00 | disposition home or self-care (01) ==
LOC: FTE 04:24
DX: J20.9 Acute bronchitis, unspecified (principal); J45.901 Unspecified asthma with (acute) exacerbation
CPT/HCPCS: 71010; 94644; 96372; J2930; Z7502; Z7610

== ENCOUNTER 2017-02-12 09:00 | Emergency (ER) | payer OTHER ==
[~2017-02-12] VITALS: Ht 172.7 cm; Wt 94.3 kg
[~2017-02-12 09:00] MED LIST changes: +PRED50TA PO
[2017-02-12 09:05] VITALS: Ht 172.7 cm; Wt 94.3 kg
[2017-02-12] MEDS ORDERED: IPRATROPIUM (NEB) 0.5 MG/2.5 ML AMP NEB STA (09:24)
[2017-02-12] MEDS ORDERED: METHYLPREDNISOLONE 125 MG INJ IM STA (09:24)
[2017-02-12] MEDS ORDERED: ALBUTEROL 0.5% (NEB) 2.5 MG/0.5 ML AMP INH STA (09:24)
[2017-02-12] MEDS ORDERED: PRED20TA PO (10:24)
[2017-02-12] MEDS ORDERED: LEVO500T72 PO (10:24)
[2017-02-12] MEDS ORDERED: ALBU18HF INHALATION (10:24)
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
[2017-02-12 11:56] VITALS: BP 130/78; PULSE 75; RESP 17
== END 2017-02-12 11:56 | disposition home or self-care (01) ==
LOC: FTE 09:00
DX: J45.901 Unspecified asthma with (acute) exacerbation (principal)
CPT/HCPCS: 94644; 96372; J2930; Z7502; Z7610

== ENCOUNTER 2017-03-11 04:37 | Emergency (ER) | payer OTHER ==
[~2017-03-11] VITALS: Ht 167.6 cm; Wt 96.0 kg
[~2017-03-11 04:37] MED LIST changes: +PRED20TA PO
[2017-03-11] MEDS ORDERED: ALBUTEROL 0.5% (NEB) 2.5 MG/0.5 ML AMP INH STA (04:39)
[2017-03-11] MEDS ORDERED: DEXAMETHASONE 10 MG/ML 1 ML INJ IM STA (04:39)
[2017-03-11] MEDS ORDERED: IPRATROPIUM (NEB) 0.5 MG/2.5 ML AMP INH STA (04:39)
[2017-03-11 04:50] VITALS: Ht 167.6 cm; Wt 96.0 kg
--- NOTE | 2017-03-11 05:24 | RADRPT ---
PROCEDURE: XR Chest. CLINICAL INDICATION: Asthma TECHNIQUE: AP Portable chest. COMPARISON: CHEST 12/30/2016; CHEST 10/28/2016; [facility] CHEST 05/17/2016; FINDINGS: The cardiomediastinal silhouette is normal. The aorta is normal. No focal consolidation, pleural eff usion or pneumothorax is seen. The osseous structures are intact. IMPRESSION: No radiographic evidence of acute cardiopulmonary disease. Ashely Hua Physician Date Time Electronically viewed and signed by Ashely Hua Physician on 03/11/2017 05:23 CS/
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
[2017-03-11] MEDS ORDERED: ALBU18HF INHALATION (05:46)
[2017-03-11] MEDS ORDERED: PRED20TA PO (05:46)
[2017-03-11 06:20] VITALS: BP 120/79; PULSE 79; RESP 16; TEMP 97.8
== END 2017-03-11 06:30 | disposition home or self-care (01) ==
LOC: E/R 04:37
DX: R06.02 Shortness of breath (principal); J45.909 Unspecified asthma, uncomplicated
CPT/HCPCS: 71010; 94644; 96372; J1100; Z7502; Z7610

== ENCOUNTER 2017-04-18 11:06 | Emergency (ER) | END 2017-04-18 11:34 | disposition home or self-care (01) ==

== ENCOUNTER 2017-06-05 12:30 | Emergency (ER) | END 2017-06-05 16:04 | disposition home or self-care (01) ==

== ENCOUNTER 2017-07-09 09:10 | Emergency (ER) | END 2017-07-09 14:21 | disposition home or self-care (01) ==

== ENCOUNTER 2017-08-01 12:31 | Emergency (ER) | END 2017-08-01 17:23 | disposition home or self-care (01) ==

== ENCOUNTER 2017-08-19 05:38 | Emergency (ER) | END 2017-08-19 07:11 | disposition home or self-care (01) ==

== ENCOUNTER 2017-10-26 09:20 | Emergency (ER) | END 2017-10-26 12:44 | disposition home or self-care (01) ==

== ENCOUNTER 2018-01-18 08:26 | Emergency (ER) | END 2018-01-18 11:11 | disposition home or self-care (01) ==

== ENCOUNTER 2018-02-22 08:11 | Emergency (ER) | END 2018-02-22 09:22 | disposition home or self-care (01) ==

== ENCOUNTER 2018-04-04 17:26 | Emergency (ER) | payer OTHER ==
[~2018-04-04] VITALS: Wt 96.5 kg
[~2018-04-04 17:26] MED LIST changes: -ALBU8.5H3 INH; -CETI10CA PO; -GUAI120S26 PO; -IBUP800T25 PO; -LEVO500T72 PO; -METR500T PO; -PRED50TA PO
[2018-04-04 17:39] VITALS: BP 134/87; PULSE 101; RESP 19
[2018-04-04] MEDS ORDERED: predniSONE 20 MG TAB PO STA (18:54)
[2018-04-04] MEDS ORDERED: LEVALBUTEROL (NEB) 0.63 MG/3 ML AMP INH STA (18:54)
[2018-04-04] MEDS ORDERED: IPRATROPIUM (NEB) 0.5 MG/2.5 ML AMP NEB STA (18:54)
[2018-04-04] MEDS ORDERED: ALBU18HF INHALATION (20:27)
[2018-04-04] MEDS ORDERED: D-ME118S24 PO (20:27)
[2018-04-04] MEDS ORDERED: PRED20TA PO (20:27)
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
== END 2018-04-04 20:36 | disposition home or self-care (01) ==
LOC: FTE 17:26
DX: J45.901 Unspecified asthma with (acute) exacerbation (principal)
CPT/HCPCS: 94640; J7512; Z7610

== ENCOUNTER 2018-06-16 10:39 | Emergency (ER) | payer OTHER ==
[~2018-06-16] VITALS: Ht 167.6 cm; Wt 97.8 kg
[~2018-06-16 10:39] MED LIST changes: +D-ME118S24 PO
[2018-06-16 10:47] VITALS: BP 128/69; PULSE 93; RESP 20; Ht 167.6 cm; Wt 97.8 kg
[2018-06-16] MEDS ORDERED: IPRATROPIUM (NEB) 0.5 MG/2.5 ML AMP NEB STA (11:39)
[2018-06-16] MEDS ORDERED: LEVALBUTEROL (NEB) 0.63 MG/3 ML AMP INH STA (11:39)
[2018-06-16] MEDS ORDERED: DEXAMETHASONE 10 MG/ML 1 ML INJ IM STA (11:39)
[2018-06-16] MEDS ORDERED: PRED20TA PO (13:37)
[2018-06-16] MEDS ORDERED: ALBU18HF INHALATION (13:37)
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
== END 2018-06-16 13:51 | disposition home or self-care (01) ==
LOC: FTE 10:39
DX: J45.901 Unspecified asthma with (acute) exacerbation (principal)
CPT/HCPCS: 94664; 96372; J1100; Z7502; Z7610

== ENCOUNTER 2018-12-12 08:58 | Emergency (ER) | payer OTHER ==
[~2018-12-12] VITALS: Wt 89.0 kg
[~2018-12-12 08:58] MED LIST changes: +ALBU8.5H8 INH
[2018-12-12] MEDS ORDERED: ALBUTEROL 0.083% (NEB) 2.5 MG/3 ML AMP HHN STA (09:49)
[2018-12-12] MEDS ORDERED: IPRATROPIUM (NEB) 0.5 MG/2.5 ML AMP HHN ONE (10:00)
[2018-12-12] MEDS ORDERED: DEXAMETHASONE 10 MG/ML 1 ML INJ IM ONE (10:00)
[2018-12-12 11:23] VITALS: BP 132/80; PULSE 101; RESP 17
== END 2018-12-12 11:23 | disposition home or self-care (01) ==
LOC: FTE 08:58
DX: J45.901 Unspecified asthma with (acute) exacerbation (principal); R06.02 Shortness of breath
CPT/HCPCS: 94640; 94644; 96372; J1100; Z7502; Z7610